=== PATIENT | male | born 1965 | race Caucasian/White ===

== ENCOUNTER → 2017-08-17 10:13 | Outpatient (CLI) | payer MEDICAID ==
[2017-08-17 11:07] LABS: ALBUMIN 3.6 g/dL (3.4-5.0); ANION GAP 15.6 mmol/L (8-16); BILIRUBIN - TOTAL 0.5 mg/dL (0.2-1.3); CALCIUM 8.9 mg/dL (8.5-10.1); CARBON DIOXIDE 27.7 mmol/L (21.0-32.0); CREATININE - SERUM 1.4 mg/dL (0.6-1.3); POTASSIUM - SERUM 3.3 mmol/L (3.5-5.1); T4 THYROXINE 10.6 ug/dL (4.7-13.3); THYROID STIMULATING HORMONE 1.79 uIU/mL (0.36-3.74)
[2017-08-17 12:38] LABS: ERYTHROCYTE SEDIMENTATION RATE 54 mm/hr (0-20)
[2017-08-17 12:39] LABS: BASOPHILS 0.5 % (0-2); HEMATOCRIT 41.4 % (42.0-54.0); HEMOGLOBIN 14.1 g/dL (13.5-17.5); IMMATURE GRANULOCYTES 0.4 % (0-5); LYMPHOCYTES 18.4 % (15-50); MCH 31.7 pg (26.0-34.0); MCHC 34.1 g/dL (31.0-37.0); MEAN PLATELET VOLUME 11.1 fL (7.4-10.4); MONOCYTES 5.1 % (2-11); NEUTROPHILS 72.6 % (40-80); PLATELET COUNT 261 10x3/uL (130-400); RBC 4.45 10x6/uL (4.20-6.10); RDW 13.7 % (11.5-14.5); WBC 10.4 10x3/uL (4.8-10.8)
[2017-08-18 07:28] LABS: RAPID PLASMA REAGIN Non Reactive (Non Reactive)
[2017-08-18 08:20] LABS: FOLATE (FOLIC ACID) - SERUM 9.3 ng/mL (>3.0)
--- NOTE | 2017-08-22 06:41 | EEG ---
PATIENT:AAKASH SCHERER DATE OF SERVICE: 08/17/17 MEDICAL RECORD: [id number] DATE OF : 61 LOCATION: [facility] ADMISSION DATE: 08/17/17 REFERRING PHYSICIAN: INTERPRETING PHYSICIAN: NEHEMIAS TORRE MD DATE OF SERVICE: 08/17/2017 REFERRING PHYSICIAN: Referred by Nehemias Torre MD as an outpatient. ELECTROENCEPHALOGRAM NUMBER: [id number]. DATE OF EXAMINATION: 08/17/2017 at 11:40 a.m. TECHNICAL DATA: This electroencephalographic recording consists of approximately 20 minutes of data collection utilizing the international 10/20 system of electrode placement and both referential and non-referential montages. Sixteen channels of electrocerebral recording are accompanied by a 17th channel dedicated to the electrocardiographic rhythm and 2 channels of electromyographic recording. Recording is performed in the awake and drowsy states utilizing activation by photic stimulation. ELECTROENCEPHALOGRAPHIC DATA: The awake state comprises approximately 90% of the recorded electrocerebral activity. Electromyographic artifact is prominent and rapid eye movements are seen. The posterior dominant background consists of a well-developed, symmetric, rhythmic, waxing and waning alpha activity of 9-10 Hz, which is suppressed by eye opening. The drowsy state comprises the remaining portion of the recorded electrocerebral activity. Electromyographic artifact is diminished and rapid eye movements are not seen. The posterior dominant background is relatively suppressed. Also seen is an intermittent irregular, generalized, and symmetric 3-4 Hz delta slowing, which occurs for periods of 1-2 seconds approximately once every 1-2 pages. No abnormal or focal slowing is identified. No epileptiform discharges are seen. Photic stimulation induces no abnormal change in the recorded electrocerebral activity. Note is made that the patient has periods of shaking of the left-sided limbs and body that are accompanied by normal waking electroencephalographic activity. INTERPRETATION: Normal (awake and drowsy). This is a normal electroencephalographic recording. Note is made that the patient has his typical shaking of the left side of the body during the electroencephalographic recording. The recorded electrocerebral activity remains normal in the waking state. TRANSINT:[id number] Voice Confirmation ID: [id number] DOCUMENT ID: [id number] ELECTROENCEPHALOGRAM REPORT [id number] AAKASH SCHERER NEHEMIAS TORRE MD at 0641 CC: [id number] DICTATION DATE: 08/20/17 0649 GUMMING MACHINE OPERATOR: 08/20/17 1228 DEP CLI 08/17/[address] [facility] [address] [id number]
== END | disposition home or self-care (01) ==
LOC: D.LAB 10:13 → D.CN 11:00
PROVIDERS: Psychiatry & Neurology Neurology
DX: G25.0 Essential tremor (principal); R41.2 Retrograde amnesia

== ENCOUNTER → 2017-11-26 09:22 | Outpatient (CLI) | payer MEDICAID ==
--- NOTE | ~2017-11-26 | EC ---
PATIENT:AAKASH SCHERER DATE OF SERVICE: 11/26/17 SEX: M MEDICAL RECORD: [id number] DATE OF : 61 [facility] AGE OF PATIENT: 52 ADMISSION DATE: 11/26/17 REFERRING PHYSICIAN: INTERPRETING PHYSICIAN: GAURAV MADRIGAL MD ECHOCARDIOGRAM REPORT ECHO CHARGES 4 ECHO COMPLETE CLINICAL DIAGNOSIS: ASTHMA/ EDEMA LOWER EXT. ECHOCARDIOGRAPHIC MEASUREMENTS (adult normal given) AC root (d.<3.7cm) 4.4 cm LV Septum d (<1.2 cm> 1.4 cm Valve Excursion 1.6 cm LV Septum (systole) 1.6 cm Left Atria (s.<4.0cm> 4.4 cm LVPW d(<1.2cm) 1.6 cm RV (d.<2.3cm) 4.2 cm LVPW (sytole) 2.3 cm LV diastole(<5.6CM) 5.7 cm MV E-F(>70mm/sec) cm LV systole 3.0 cm LVOT Diameter 1.5 cm MV exc.(>10mm) 1.4 cm Est.ejection fraction (50-75%) % Pericardial Effusion N DOPPLER: LVIT cm/sec A 67.0 cm/sec E 45.0 cm/sec LA cm/sec RVSP 27 mmHg LVOT 112 cm/sec AOP1/2T m/s Asc. Ao 185 cm/sec RVOT 97 cm/sec RA cm/sec PA 157 cm/sec AV Gradient Peak 13.74mmHg AV Mean 7.29 mmHg AV Area 1.3 cm MV Gradient Peak 3.75 mmHg MV Mean 1.70 mmHg MV Area cm COMMENTS: Earth Burner: Rickey DWYER Log Check Scaler: Diony Madrigal TAPE# PACS DATE OF SERVICE: 11/26/2017 PROCEDURE: Echocardiogram. FINDINGS: 1. Left ventricle chamber size is upper limits of normal, left ventricular systolic function is normal. Overall ejection fraction estimated at 60%. 2. The left atrium is mildly dilated at 4.4 cm. Right atrium and right ventricular chamber sizes are as well mildly dilated. 3. Valvular structures have normal structure and motion. ECHOCARDIOGRAM REPORT [id number] AAKASH SCHERER 4. Doppler interrogation only reveals mild tricuspid regurgitation. No other valvular insufficiency or stenosis. Pulmonary systolic pressure is normal estimated at 27 mmHg. 5. No evidence of pericardial effusion or left ventricular thrombus. TRANSINT:[id number] Voice Confirmation ID: [id number] DOCUMENT ID: [id number] GAURAV MADRIGAL MD at 1018 CC: [id number] DICTATION DATE: 11/26/17 1210 SALVAGE REPAIRER: 11/26/17 1217 DEP CLI 11/26/17 [place] [id number] [place] [id number]
[2017-12-01 18:10] LABS: IMMUNOGLOBULIN E 749 IU/mL (0-100)
== END | disposition home or self-care (01) ==
LOC: D.ECHO 11-13 10:05 → D.RT 11-13 11:00 → D.ECHO 11-13 11:45
PROVIDERS: Internal Medicine Pulmonary Disease
DX: J45.909 Unspecified asthma, uncomplicated (principal); R60.0 Localized edema

== ENCOUNTER 2018-02-17 07:28 | Outpatient (CLI) | payer MEDICAID ==
[~2018-02-17] VITALS: Ht 180.3 cm; Wt 170.5 kg
--- NOTE | ~2018-02-17 | OP ---
PATIENT NAME: AAKASH SCHERER MEDICAL RECORD: [id number] :61 LOCATION:[facility] ADMISSION DATE: SURGEON: GAURAV NINO MD DATE OF OPERATION: 02/17/2018 PROCEDURE: Attempted cardiac catheterization, aborted secondary to inability to gain radial access. The patient is refusing femoral access. PROCEDURE IN DETAIL: After informed consent was obtained and after detailed explanation of risks and benefits as well as alternative therapies, the patient elected to proceed with angiogram as long as it was radial. We were able to cannulate the radial artery; however, it was too small to wire. We were able to cannulate this twice with the needle; however, we could not wire this to put the sheath in. The patient refused femoral access, hence procedure was terminated. TRANSINT:[id number] Voice Confirmation ID: [id number] DOCUMENT ID: [id number] GAURAV NINO MD at 0956 CC: [id number] DICTATION DATE: 02/17/18 0939 WAREHOUSE DELIVERY MANAGER: 02/17/18 1327 DEP CLI 02/17/18 [facility] [address] [place] [address]
--- NOTE | ~2018-02-17 | HEMODYNAMI ---
PATIENT:AAKASH PAYTON MEDICAL RECORD: [id number] : 61 LOCATION:[facility] ADMISSION DATE: 02/17/18 Generatedon:02/17/20189:40 Patient name: AAKASH PAYTON Patient #: [id number] SSN: : 1965 Date of study: 02/17/2018 Page: Of Hemodynamic Procedure Report Patient Data Patient Demographics Procedure consent was obtained First Name: AAKASH Gender: Male Last Name: NIESHA : 1965 Middle Initial: CODY Age: 52 year(s) Patient #: [id number] Race: Unknown Additional ID: [id number] Contact details [address]: [address] [place] [address] State: [place] City: [place] Zip code: [address] Admission Admission Data Admission Date: 02/17/2018 Admission Time: 7:28 Height (in.): 72 BSA: 2.79 (m2) Height (cm.): 182.88 BMI: 51.27 (kg/m2) Weight (lbs.): 378 Weight (kg.): 171.46 Lab Results Lab Result Date: 02/17/2018 Lab Result Time: 0:00 Biochemistry Name Units Result Min Max BUN mg/dl 17 --(---*)-- 7 18 Creatinine mg/dl 1.2 --(---*)-- 0.6 1.3 CBC Name Units Result Min Max Hemoglobin g/dl 14 --(*---)-- 13.5 17.5 Procedure Procedure Types Cath Procedure Diagnostic Procedure Sedation Charges Moderate Sedation up to 15 minutes Procedure Description Procedure Date Procedure Date: 02/17/2018 Procedure Start Time: 9:14 Procedure End Time: 9:39 Procedure Staff Name Function Maximiliano Madrigal MD Performing Physician Ashley Ziegler RT Scrub Ondina Nascimento RT Monitor Ken Gamez RN Nurse Procedure Data Cath Procedure Fluoroscopy Diagnostic fluoroscopy Total fluoroscopy Time: 0 time: 0 min min Contrast Material Contrast Material Type Amount (ml) Isovue 300 0 Estimated blood loss: 0 ml Procedure Complications No complications Procedure Medications Medication Administration Route Dosage Oxygen NC 2 l/min Lidocaine 2% added to field 20 Heparin Flush Bag added to field 2 bags (1000units/500ml NS) 0.9% NaCl I.V. 100 ml/hr Versed I.V. 1 mg Fentanyl I.V. 50 mcg Versed I.V. 1 mg Fentanyl I.V. 50 mcg Versed I.V. 1 mg Fentanyl I.V. 50 mcg Versed I.V. 1 mg Fentanyl I.V. 50 mcg Hemodynamics Rest BSA: 2.79 (m2) HGB: 14 (g/dl) O2 Consumption: Estimated: 355.07 (ml/min) O2 Cons umption indexed: Estimated:127.27 (ml/min/m) Heart Rate: 93 (bpm) Snapshots Pre Cath Intra NCS Post Cath Vital Signs Time Heart Resp SPO2 etCO2 NIBP Rhythm Pain Sedation Rate (ipm) (%) (mmHg) (mmHg) Status Level (bpm) 9:04:42 91 23 96 0 118/54(76) NSR 0 (11) 10(A) , No pain 8:57:28 88 21 95 0 113/53(86) NSR 0 (11) 10(A) , No pain 9:10:14 78 14 94 33.5 104/64(0) NSR 0 (11) 10(A) , No pain 9:15:01 84 15 99 38 Time NSR 0 (11) 10(A) Exceeded , No pain 9:20:00 77 12 95 23.1 110/58(0) NSR 0 (11) 9(A) , No pain 9:21:24 73 14 94 25.3 Time NSR 0 (11) 9(A) Exceeded , No pain 9:26:35 92 15 98 10.4 116/62(0) NSR 0 (11) 9(A) , No pain 9:31:34 82 14 97 41 Measuring NSR 0 (11) 9(A) , No pain 9:32:34 81 12 100 17.1 105/58(0) NSR 0 (11) 9(A) , No pain 9:37:33 87 13 100 40.2 Measuring NSR 0 (11) 9(A) , No pain 9:38:57 88 13 100 35.8 108/60(0) NSR 0 (11) 9(A) , No pain Medications Time Medication Route Dose Verified Delivered Reason Notes Effec tiveness by by 8:53:06 Oxygen NC 2 Maximiliano Buffie used for l/min Rohan Gamez RN procedure 8:53:13 Lidocaine 2% added 20ml Maximiliano Maximiliano for local to vial Rohan Madrigal MD anesthetic field 8:53:18 Heparin Flush added 2 Maximiliano Maximiliano used for Bag to bags Rohan Madrigal MD procedure (1000units/500ml field NS) 8:53:27 0.9% NaCl I.V. 100 Maximiliano Buffie Per ml/hr Rohan Gamez RN physician 9:12:40 Versed I.V. 1 mg Maximiliano Buffie for Rohan Gamez RN sedation 9:12:45 Fentanyl I.V. 50 Maximiliano Buffie for mcg Rohan Gamez RN sedation 9:17:31 Versed I.V. 1 mg Maximiliano Buffie for Rohan Gamez RN sedation 9:17:34 Fentanyl I.V. 50 Maximiliano Buffie for mcg Rohan Gamez RN sedation 9:22:27 Versed I.V. 1 mg Maximiliano Buffie for Rohan Gamez RN sedation 9:22:30 Fentanyl I.V. 50 Maximiliano Buffie for mcg Rohan Gamez RN sedation 9:28:52 Versed I.V. 1 mg Maximiliano Buffie for Rohan Gamez RN sedation 9:28:56 Fentanyl I.V. 50 Maximiliano Buffie for mcg Rohan Gamez RN sedation Procedure Log Time Note 8:30:58 Informed consent obtained and on chart 8:31:08 Mr. Payton states that he will only have procedure done via the radial artery, pt refuses to remove underwear and states that if radial approach cannot be used then to abort procedure. Dr. Madrigal is made aware of request. 8:31:10 Diagnostic Cath Status : Elective 8:32:00 Ashley Ziegler RT(R) sent for patient. Start room use. 8:32:10 Time tracking: Regular hours (M-F 7:00 - 5:00) 8:32:18 Plan of Care:Hemodynamics will remain stable., Cardiac rhythm will remain stable., Comfort level will be maintained., Respiratory function will remain adequate., Patient/ family verbilizes understanding of procedure., Procedure tolerated without complication., Recovers from procedure without complications.. 8:44:06 Patient received from Pre/Post Procedure Room to CCL 2 Alert and oriented. Tansferred to table in Supine position. 8:44:07 Warm blankets applied, and chas hugger turned on for patient comfort. 8:44:08 Correct patient and procedure confirmed by team. 8:44:09 ECG and BP/O2 sat monitors applied to patient. 8:50:49 Vital chart was started 8:50:55 Full Disclosure recording started 8:51:00 H&P Date Dictated: 02/17/2018 Within 30 days and on chart., H&P Addendum completed by physician on day of procedure. (MUST COMPLETE FOR ALL OUTPATIENTS). 8:51:01 Pre-procedure instructions explained to patient. 8:51:01 Pre-op teaching completed and patient verbalized understanding. 8:51:02 Family in waiting room. 8:51:05 Patient NPO since Midnight. 8:51:07 Is the patient allergic to Iodine/contrast media? No. 8:51:09 Was the patient premedicated? No 8:51:12 Is patient on blood thinner?No 8:51:14 Patient diabetic? Yes. 8:51:15 If diabetic: On Metformin? Yes 8:51:18 If on Metformin: Last Dose? 02/15/2018 8:51:24 Previous problem with sedation/anesthesia? No ? 8:51:28 Snore? Yes 8:51:29 Sleep apnea? Yes 8:51:30 Deviated septum? No 8:51:31 Opens mouth fully? Yes 8:51:32 Sticks out tongue? Yes 8:51:39 Airway obstruction? Yes asthma 8:51:46 Dentures? No ? 8:51:51 Pre procedure: right dorsailis pedis pulse 1+ Palpable, but thready & weak; easily obliterated 8:51:53 Pre procedure: left dorsailis pedis pulse 1+ Palpable, but thready & weak; easily obliterated 8:51:54 Patient pain scale 0/10 ?. 8:52:00 IV patent on arrival in left forearm with 0.9% NaCl at KVO. 8:52:04 Lab results completed and on chart. 8:52:14 Right Radial area was prepped with chlora-prep and draped in sterile fashion 8:52:15 Alarms reviewed by R. N. 8:52:16 Sharps counted by scrub and verified by R.N. 8:53:06 Oxygen 2 l/min NC was administered by Ken Gamez RN; used for procedure; 8:53:13 Lidocaine 2% 20ml vial added to field was administered by Maximiliano Madrigal MD; for local anesthetic; 8:53:18 Heparin Flush Bag (1000units/500ml NS) 2 bags added to field was administered by Maximiliano Madrigal MD; used for procedure; 8:53:27 0.9% NaCl 100 ml/hr I.V. was administered by Ken Gamez RN; Per physician; 8:56:17 Baseline sample Acquired. 8:56:25 Rhythm: sinus tachycardia 9:01:25 Use device set Femoral Dx 9:01:26 Medline Cath Pack ([id number]) opened to sterile field. 9:01:29 DIAGNOSTIC WIRE .035 260cm J wire ([id number]) opened to sterile field. 9:01:30 ACIST Hand Control (87751) opened to sterile field. 9:01:31 ACIST Manifold (71086) opened to sterile field. 9:01:36 Tegaderm 4 x 4 (1626W) opened to sterile field. 9:01:51 SHEATH 6Fr Prelude Radial ([id number]) opened to sterile field. 9:03:33 Patient Height : 72 inches 9:03:40 Patient Weight : 378 lbs 9:05:37 Lab Result : Creatinine 1.2 mg/dl 9:05:37 Lab Result : BUN 17 mg/dl 9:05:37 Lab Result : Hemoglobin 14 g/dl 9:11:22 Physician arrived 9::23 --------ALL STOP TIME OUT------ 9:11:24 Final Timeout: patient, procedure, and site verified with staff and physician. All members of the team are in agreement. 9:11:32 Right Radial site verified by team. 9:11:47 Physical assessment completed. ASA score P 2 - A patient with mild systemic disease as per Maximiliano Madrigal MD. 9:11:53 Sedation plan: IV Moderate Sedation Medication:Versed, Fentanyl 9:12:11 Zero performed for pressure channel P1 9:12:40 Versed 1 mg I.V. was administered by Ken Gamez RN; for sedation; 9:12:45 Fentanyl 50 mcg I.V. was administered by Ken Gamez RN; for sedation; 9:13:58 Procedure started. 9:14:09 Local anesthetic to right radial artery with Lidocaine 2% by Maximiliano Madrigal MD.INITIAL ACCESS ONLY 9:17:31 Versed 1 mg I.V. was administered by Ken Gamez RN; for sedation; 9:17:34 Fentanyl 50 mcg I.V. was administered by Ken Gamez RN; for sedation; 9:22:27 Versed 1 mg I.V. was administered by Ken Gamez RN; for sedation; 9:22:30 Fentanyl 50 mcg I.V. was administered by Ken Gamez RN; for sedation; 9:28:52 Versed 1 mg I.V. was administered by Ken Gamez RN; for sedation; 9:28:56 Fentanyl 50 mcg I.V. was administered by Ken Gamez RN; for sedation; 9:37:13 Unable to access radial artery. Procedure aborted. 9:37:24 Timer 1 started at 9:18 AM, stopped at 9:37 AM, duration 00:19:01 sec. 9:37:35 Procedure ended.(Physican Out) 9:37:46 Fluoroscopy time 00.00 minutes. 9:37:53 Contrast amount:Isovue 300 0ml. 9:37:58 Sharps counted by scrub and verified by R.N. 9:38:01 Insertion/operative site no bleeding no hematoma. 9:38:08 Post procedure rhythm: unchanged. 9:38:14 Estimated blood loss: 0 ml 9:38:21 Post procedure instruction explained to patient.Patient verbalizes understanding. 9:38:46 Procedure type changed to Cath procedure, Diagnostic procedure, Sedation Charges, Moderate Sedation up to 15 minutes 9:38:49 Procedure and supply charges have been captured, reviewed, submitted and are correct. 9:39:32 Procedure Complication : No complications 9:39:34 Vital chart was stopped 9:39:35 See physician's report for complete and final results. 9:39:37 Report given to Pre/Post Procedure Room. 9:39:40 Patient transfered to Pre/Post Procedure Room with Stretcher. 9:39:43 Procedure ended. 9:39:43 Full Disclosure recording stopped 9:39:46 End room use (Document Last) Device Usage Item Name Manufacture Quantity Catalog Number Hospital Part Current M inimal Lot# / Charge Number Stock Stock Serial# Code Medline Cath Cardinal 1 [id number] [id number] [id number] 5 [facility] ([id number]) DIAGNOSTIC WIRE [facility] [place] 1 398674 894611 813674 399276 3 0 .035 260cm J wire (802000) ACIST Hand Acist 1 15724 212162 411466 439526 5 Control (13879) [employer] ACIST Manifold Acist 1 38680 891843 108510 640326 5 (15660) [employer] Tegaderm 4 x 4 3M 1 1626W [id number] 511261 817345 5 (1626W) SHEATH 6Fr Merit 1 [id number] 413279 452770 244447 5 Prelude [facility] ([id number]) Signature Audit [place] Stage Time Signature Unsigned Intra-Procedure 02/17/2018 Ondina Nascimento 9:40:06 AM RT(R) Signatures Monitor : Ondina Nascimento Signature : RT Date : Time : [address] [address]
[2018-02-17] MEDS ORDERED: LISINOPRIL5 MG PO (07:49)
[2018-02-17] MEDS ORDERED: FUROSEMIDE40 MG PO (07:50)
[2018-02-17] MEDS ORDERED: K-DUR20 MEQ PO (07:50)
[2018-02-17] MEDS ORDERED: PEPCID20 MG PO (07:50)
[2018-02-17] MEDS ORDERED: PRAVACHOL40 MG PO (07:51)
[2018-02-17] MEDS ORDERED: INDERAL10 MG PO (07:52)
[2018-02-17] MEDS ORDERED: GLUCOPHAGE1000 MG PO (07:52)
[2018-02-17] MEDS ORDERED: PROAIR HFA8.5 GM INH (07:53)
[2018-02-17] MEDS ORDERED: LOPRESSOR25 MG PO (07:53)
[2018-02-17] MEDS ORDERED: MYSOLINE 50 MG50 MG PO (07:55)
[2018-02-17 08:03] VITALS: BP 119/73; Ht 180.3 cm; Wt 170.5 kg
[2018-02-17 08:12] LABS: BASOPHILS 0.6 % (0-2); EOSINOPHILS 5.1 % (0-7); HEMATOCRIT 41.9 % (42.0-54.0); IMMATURE GRANULOCYTES 0.4 % (0-5); LYMPHOCYTES 28.1 % (15-50); MCH 31.2 pg (26.0-34.0); MCHC 33.4 g/dL (31.0-37.0); MCV 93.3 fL (80.0-100.0); MEAN PLATELET VOLUME 10.7 fL (7.4-10.4); MONOCYTES 7.1 % (2-11); NEUTROPHILS 58.7 % (40-80); PLATELET COUNT 242 10x3/uL (130-400); RBC 4.49 10x6/uL (4.20-6.10); RDW 13.7 % (11.5-14.5); WBC 7.8 10x3/uL (4.8-10.8)
[2018-02-17 08:53] LABS: ANION GAP 15.4 mmol/L (8-16); CALCIUM 9.1 mg/dL (8.5-10.1); CARBON DIOXIDE 26.8 mmol/L (21.0-32.0); CREATININE - SERUM 1.2 mg/dL (0.6-1.3); POTASSIUM - SERUM 4.2 mmol/L (3.5-5.1)
== END 2018-02-17 12:05 | disposition home or self-care (01) ==
LOC: D.CATH 07:28
PROVIDERS: Internal Medicine Interventional Cardiology
DX: I20.9 Angina pectoris, unspecified (principal); Z01.812 Encounter for preprocedural laboratory examination

== ENCOUNTER → 2018-04-16 08:31 | Outpatient (CLI) | payer MEDICAID ==
[2018-02-17 08:03] VITALS: BMI 52.4
[~2018-04-16 08:31] MED LIST: COLCRYS0.6 MG PO; FUROSEMIDE40 MG PO; GLUCOPHAGE1000 MG PO; INDERAL10 MG PO; K-DUR20 MEQ PO; LISINOPRIL5 MG PO; LOPRESSOR25 MG PO; MYSOLINE 50 MG50 MG PO; NORCO 7.5/325 T1 TA1 PO; PEPCID20 MG PO; PRAVACHOL40 MG PO; PREDNISONE10 MG PO; PROAIR HFA8.5 GM INH; ZITHROMAX250 MG PO
== END | disposition home or self-care (01) ==
LOC: D.US 08:31
DX: R60.0 Localized edema (principal)

== ENCOUNTER 2018-05-16 19:39 | Emergency (ER) | payer MEDICAID ==
[~2018-05-16] VITALS: Ht 180.3 cm; Wt 163.6 kg
[~2018-05-16 19:39] MED LIST changes: -COLCRYS0.6 MG PO; -NORCO 7.5/325 T1 TA1 PO; -PREDNISONE10 MG PO; -ZITHROMAX250 MG PO
[2018-05-16 19:43] VITALS: Ht 180.3 cm; Wt 163.6 kg
[2018-05-16 20:10] LABS: BASOPHILS 0.5 % (0-2); HEMATOCRIT 40.9 % (42.0-54.0); HEMOGLOBIN 13.6 g/dL (13.5-17.5); IMMATURE GRANULOCYTES 0.3 % (0-5); LYMPHOCYTES 23.3 % (15-50); MCH 31.3 pg (26.0-34.0); MCHC 33.3 g/dL (31.0-37.0); MEAN PLATELET VOLUME 10.7 fL (7.4-10.4); NEUTROPHILS 67.9 % (40-80); PLATELET COUNT 271 10x3/uL (130-400); RBC 4.35 10x6/uL (4.20-6.10); RDW 13.6 % (11.5-14.5); WBC 9.8 10x3/uL (4.8-10.8)
[2018-05-16 20:38] LABS: APPEARANCE CLEAR (CLEAR); COLOR YELLOW (YELLOW)
[2018-05-16 20:38] LABS: ALBUMIN 3.5 g/dL (3.4-5.0); ALKALINE PHOSPHATASE 96 U/L (46-116); ALT (SGPT) 27 U/L (10-68); BILIRUBIN - TOTAL 0.26 mg/dL (0.2-1.3); CALC OSMOLALITY 281 mosm/kg (275-300); CALCIUM 9.2 mg/dL (8.5-10.1); CHLORIDE - SERUM 100 mmol/L (98-107); CREATININE - SERUM 1.3 mg/dL (0.6-1.3); GLUCOSE 197 mg/dL (74-106); POTASSIUM - SERUM 3.5 mmol/L (3.5-5.1); PROTEIN - SERUM 7.5 g/dL (6.4-8.2); SODIUM 138 mmol/L (136-145); UREA NITROGEN 14 mg/dL (7-18); eGFR NON AFRICAN AMERICAN 61 mL/min (90-120)
[2018-05-16 20:39] LABS: BILIRUBIN NEGATIVE (NEGATIVE); GLUCOSE NEGATIVE (NEGATIVE); KETONE NEGATIVE (NEGATIVE); NITRITE NEGATIVE (NEGATIVE); PROTEIN NEGATIVE (NEGATIVE); UROBILINOGEN NORMAL (NORMAL)
[2018-05-16 20:41] LABS: CREATINE KINASE 37 UL (21-232)
[2018-05-16 20:41] LABS: WHITE CELLS - URINE 0-5 /hpf (0-5)
[2018-05-16 20:42] LABS: BACTERIA FEW /hpf (NONE SEEN)
[2018-05-16 20:45] LABS: TROPONIN-I < 0.017 ng/mL (0.000-0.060)
[2018-05-16 20:47] LABS: INR 0.89 (0.85-1.17); PROTIME 11.7 SECONDS (11.6-15.0)
[2018-05-16 20:50] LABS: THYROID STIMULATING HORMONE 2.59 uIU/mL (0.36-3.74); URIC ACID 9.6 mg/dL (2.6-7.2)
[2018-05-16] MEDS ORDERED: ZITHROMAX250 MG PO (22:44)
[2018-05-16] MEDS ORDERED: PREDNISONE10 MG PO (22:44)
[2018-05-16] MEDS ORDERED: NORCO 7.5/325 T1 TA1 PO (22:44)
[2018-05-16] MEDS ORDERED: COLCRYS0.6 MG PO (22:45)
[2018-05-17 01:25] VITALS: BP 114/55
== END 2018-05-17 01:26 | disposition home or self-care (01) ==
LOC: D.ER 19:39
PROVIDERS: Family Medicine
DX: R06.02 Shortness of breath (principal); M10.9 Gout, unspecified; M79.605 Pain in left leg; E11.9 Type 2 diabetes mellitus without complications; I10 Essential (primary) hypertension; F17.200 Nicotine dependence, unspecified, uncomplicated

== ENCOUNTER 2018-06-24 18:14 | Inpatient (IN) | payer MEDICAID ==
[~2018-06-24] VITALS: Ht 180.3 cm; Wt 164.1 kg
--- NOTE | ~2018-06-24 | DS ---
PATIENT:AAKASH SCHERER :61 MEDICAL RECORD: [id number] DISCHARGE SUMMARY ADMISSION DATE: 06/24/18 DISCHARGE DATE: 06/27/18 DATE OF ADMISSION: 06/24/2018. DATE OF DISCHARGE: 06/27/2018. CONDITION ON DISCHARGE: Improved. ADMITTING DIAGNOSES: Hypomagnesium as well as hypokalemia. DISCHARGE DIAGNOSES: Hypokalemia, hypomagnesium, hypertension, unspecified atrial fibrillation, type 2 diabetes, gastroesophageal reflux. HOSPITAL COURSE: This patient is a 53-year-old gentleman who was admitted to the hospital with significant hypokalemia as well as electrolyte imbalance, given fluids in the Emergency Room, subsequently admitted. On physical examination, the patient was afebrile. His vital signs were stable. He had a sodium of 137, potassium 2.1, his chloride was 94, BUN was 19, his creatinine was 1.2, magnesium level was 1.6, glucose 181. Liver functions were normal. ProBNP was normal. White count 11.5, hemoglobin 13.8, hematocrit 45.5, platelet count was 271. The patient had a chest x-ray. His chest x-ray revealed bibasilar atelectasis, otherwise normal. The patient was admitted, potassium replacement was initiated as well as magnesium. On the , the patient was feeling better and resting comfortably. He was afebrile. His vital signs were stable. Physical exam was unremarkable. On the , the patient's white count was 7.3, hemoglobin 12, hematocrit 36.4, his platelets were 219. His potassium was 3.8. His magnesium had been corrected. The patient was therefore discharged to self care. MEDICATIONS: Include lisinopril 5 mg 1 p.o. every day, KCl 20 mEq p.o. t.i.d., Inderal 10 mg p.o. b.i.d., metformin 1000 mg p.o. b.i.d. with meals, Lopressor 25 mg 1 p.o. every day, ProAir 90 mcg 2 puffs q.4 hours p.r.n. shortness of breath, Primidone 50 mg p.o. t.i.d., Lasix 40 mg p.o. daily. DISCHARGE INSTRUCTIONS: The patient was to be on a 2200 calorie ADA diet, 50 ounce daily oral fluid restriction. He is to follow up with Dr. Reid on the following . TRANSINT:[id number] Voice Confirmation ID: [id number] DOCUMENT ID: [id number] FLORENTINO LEVIN MD CC: [id number] DICTATION DATE: 07/25/18 1201 VICE PRESIDENT INVESTOR RELATIONS: 07/25/18 1224 DIS IN 06/27/18 [facility] [address] [place] [id number]
[~2018-06-24 18:14] MED LIST changes: +COLCRYS0.6 MG PO; +NORCO 7.5/325 T1 TA1 PO; +PREDNISONE10 MG PO; +ZITHROMAX250 MG PO
[2018-06-24 19:25] LABS: BASOPHILS 0.5 % (0-2); HEMATOCRIT 40.5 % (42.0-54.0); HEMOGLOBIN 13.8 g/dL (13.5-17.5); IMMATURE GRANULOCYTES 0.4 % (0-5); LYMPHOCYTES 22.8 % (15-50); MCH 31.1 pg (26.0-34.0); MCHC 34.1 g/dL (31.0-37.0); MCV 91.2 fL (80.0-100.0); MEAN PLATELET VOLUME 10.7 fL (7.4-10.4); MONOCYTES 5.8 % (2-11); NEUTROPHILS 67.5 % (40-80); PLATELET COUNT 271 10x3/uL (130-400); RBC 4.44 10x6/uL (4.20-6.10); RDW 13.2 % (11.5-14.5); WBC 11.5 10x3/uL (4.8-10.8)
[2018-06-24 19:42] LABS: ALBUMIN 3.6 g/dL (3.4-5.0); ANION GAP 8.9 mmol/L (8-16); BILIRUBIN - TOTAL 0.35 mg/dL (0.2-1.3); CALCIUM 8.8 mg/dL (8.5-10.1); CARBON DIOXIDE 36.2 mmol/L (21.0-32.0); CREATININE - SERUM 1.2 mg/dL (0.6-1.3); PROTEIN - SERUM 7.9 g/dL (6.4-8.2)
[2018-06-24 19:43] LABS: POTASSIUM - SERUM 2.1 mmol/L (3.5-5.1)
[2018-06-24 20:58] LABS: MAGNESIUM - SERUM 1.6 mg/dL (1.8-2.4)
[2018-06-25 00:25] VITALS: BP 123/63; Ht 180.3 cm; Wt 164.1 kg
[2018-06-25 04:00] VITALS: BP 92/62
[2018-06-25 06:23] LABS: BASOPHILS 0.4 % (0-2); EOSINOPHILS 3.2 % (0-7); HEMATOCRIT 37.5 % (42.0-54.0); HEMOGLOBIN 12.6 g/dL (13.5-17.5); IMMATURE GRANULOCYTES 0.4 % (0-5); LYMPHOCYTES 23.4 % (15-50); MCH 30.7 pg (26.0-34.0); MCHC 33.6 g/dL (31.0-37.0); MCV 91.2 fL (80.0-100.0); MEAN PLATELET VOLUME 10.9 fL (7.4-10.4); MONOCYTES 6.7 % (2-11); NEUTROPHILS 65.9 % (40-80); PLATELET COUNT 239 10x3/uL (130-400); RBC 4.11 10x6/uL (4.20-6.10); RDW 13.6 % (11.5-14.5)
[2018-06-25 06:35] LABS: CALC OSMOLALITY 285 mosm/kg (275-300); CALCIUM 8.7 mg/dL (8.5-10.1); CARBON DIOXIDE 35.9 mmol/L (21.0-32.0); CHLORIDE - SERUM 95 mmol/L (98-107); GLUCOSE 187 mg/dL (74-106); MAGNESIUM - SERUM 1.7 mg/dL (1.8-2.4); PHOSPHOROUS 4.7 mg/dL (2.5-4.9); SODIUM 140 mmol/L (136-145); UREA NITROGEN 17 mg/dL (7-18); eGFR NON AFRICAN AMERICAN 82 mL/min (90-120)
[2018-06-25 06:36] LABS: WBC 8.3 10x3/uL (4.8-10.8)
[2018-06-25 08:28] VITALS: BP 112/82
[2018-06-25 13:18] VITALS: BP 151/73
[2018-06-25 16:08] VITALS: BP 126/88
[2018-06-25 20:00] VITALS: BP 134/56
[2018-06-26] VITALS: BP 140/58
[2018-06-26 04:00] VITALS: BP 125/62
[2018-06-26 06:26] LABS: BASOPHILS 0.4 % (0-2); EOSINOPHILS 3.8 % (0-7); HEMATOCRIT 36.4 % (42.0-54.0); HEMOGLOBIN 12.1 g/dL (13.5-17.5); IMMATURE GRANULOCYTES 0.4 % (0-5); LYMPHOCYTES 20.7 % (15-50); MCH 30.4 pg (26.0-34.0); MCHC 33.2 g/dL (31.0-37.0); MCV 91.5 fL (80.0-100.0); MEAN PLATELET VOLUME 11.1 fL (7.4-10.4); MONOCYTES 5.8 % (2-11); NEUTROPHILS 68.9 % (40-80); PLATELET COUNT 219 10x3/uL (130-400); RBC 3.98 10x6/uL (4.20-6.10); RDW 13.5 % (11.5-14.5); WBC 7.6 10x3/uL (4.8-10.8)
[2018-06-26 07:05] LABS: ALBUMIN 2.9 g/dL (3.4-5.0); ALKALINE PHOSPHATASE 77 U/L (46-116); ALT (SGPT) 28 U/L (10-68); BILIRUBIN - TOTAL 0.23 mg/dL (0.2-1.3); CALCIUM 8.1 mg/dL (8.5-10.1); CARBON DIOXIDE 36.8 mmol/L (21.0-32.0); CHLORIDE - SERUM 98 mmol/L (98-107); GLUCOSE 193 mg/dL (74-106); SODIUM 140 mmol/L (136-145); eGFR NON AFRICAN AMERICAN 82 mL/min (90-120)
[2018-06-26 07:17] LABS: CALC OSMOLALITY 282 mosm/kg (275-300); UREA NITROGEN 10 mg/dL (7-18)
[2018-06-26 07:18] LABS: POTASSIUM - SERUM 2.8 mmol/L (3.5-5.1)
[2018-06-26 07:59] VITALS: BP 119/49
[2018-06-26 20:56] VITALS: BP 97/55
[2018-06-27 04:55] VITALS: BP 125/62
[2018-06-27 05:02] LABS: BASOPHILS 0.4 % (0-2); EOSINOPHILS 4.5 % (0-7); HEMATOCRIT 36.4 % (42.0-54.0); IMMATURE GRANULOCYTES 0.3 % (0-5); LYMPHOCYTES 21.2 % (15-50); MCH 30.6 pg (26.0-34.0); MCV 92.9 fL (80.0-100.0); MEAN PLATELET VOLUME 10.8 fL (7.4-10.4); MONOCYTES 5.6 % (2-11); PLATELET COUNT 219 10x3/uL (130-400); RBC 3.92 10x6/uL (4.20-6.10); RDW 13.8 % (11.5-14.5); WBC 7.3 10x3/uL (4.8-10.8)
[2018-06-27 05:24] LABS: CALC OSMOLALITY 281 mosm/kg (275-300); CALCIUM 8.4 mg/dL (8.5-10.1); CARBON DIOXIDE 32.9 mmol/L (21.0-32.0); CHLORIDE - SERUM 102 mmol/L (98-107); CREATININE - SERUM 0.9 mg/dL (0.6-1.3); GLUCOSE 189 mg/dL (74-106); SODIUM 139 mmol/L (136-145); UREA NITROGEN 9 mg/dL (7-18); eGFR NON AFRICAN AMERICAN > 90 mL/min (90-120)
[2018-06-27 05:28] LABS: POTASSIUM - SERUM 3.5 mmol/L (3.5-5.1)
[2018-06-27] MEDS ORDERED: LASIX40 MG PO (08:21)
[2018-06-27 08:49] VITALS: BP 121/64
== END 2018-06-27 15:32 | disposition home or self-care (01) | DRG 641 ==
LOC: D.ER 18:14 → D.MS 21:59 → D.EDHOLD 21:59 → D.MS 22:34
PROVIDERS: Family Medicine
DX: E87.6 Hypokalemia (principal); E83.42 Hypomagnesemia; I10 Essential (primary) hypertension; I48.91 Unspecified atrial fibrillation; E11.40 Type 2 diabetes mellitus with diabetic neuropathy, unspecified; K21.9 Gastro-esophageal reflux disease without esophagitis

== ENCOUNTER 2018-07-07 14:57 | Emergency (ER) | payer MEDICAID ==
[~2018-07-07] VITALS: Ht 180.3 cm; Wt 160.5 kg
[~2018-07-07 14:57] MED LIST changes: +LASIX40 MG PO
[2018-07-07 15:06] VITALS: Ht 180.3 cm; Wt 160.5 kg
[2018-07-07 15:35] LABS: BASOPHILS 0.5 % (0-2); HEMATOCRIT 40.1 % (42.0-54.0); HEMOGLOBIN 13.6 g/dL (13.5-17.5); IMMATURE GRANULOCYTES 0.3 % (0-5); LYMPHOCYTES 22.5 % (15-50); MCH 31.3 pg (26.0-34.0); MCHC 33.9 g/dL (31.0-37.0); MCV 92.2 fL (80.0-100.0); MEAN PLATELET VOLUME 10.5 fL (7.4-10.4); MONOCYTES 5.1 % (2-11); NEUTROPHILS 69.6 % (40-80); PLATELET COUNT 305 10x3/uL (130-400); RBC 4.35 10x6/uL (4.20-6.10); RDW 13.8 % (11.5-14.5); WBC 12.1 10x3/uL (4.8-10.8)
[2018-07-07 16:07] LABS: ALBUMIN 3.6 g/dL (3.4-5.0); ALKALINE PHOSPHATASE 81 U/L (46-116); ALT (SGPT) 35 U/L (10-68); BILIRUBIN - TOTAL 0.47 mg/dL (0.2-1.3); CALC OSMOLALITY 267 mosm/kg (275-300); CALCIUM 8.6 mg/dL (8.5-10.1); CARBON DIOXIDE 26.4 mmol/L (21.0-32.0); CHLORIDE - SERUM 97 mmol/L (98-107); POTASSIUM - SERUM 3.8 mmol/L (3.5-5.1); PROTEIN - SERUM 7.4 g/dL (6.4-8.2); SODIUM 132 mmol/L (136-145); UREA NITROGEN 18 mg/dL (7-18); eGFR NON AFRICAN AMERICAN 37 mL/min (90-120)
[2018-07-07 16:17] LABS: GLUCOSE 118 mg/dL (74-106)
[2018-07-07 16:33] LABS: CKMB 0.5 U/L (0.0-3.6); CREATINE KINASE 53 UL (21-232); PRO BNP 48 pg/mL (0-125); TROPONIN-I < 0.017 ng/mL (0.000-0.060)
[2018-07-07 17:08] LABS: INR 0.99 (0.85-1.17); PROTIME 12.7 SECONDS (11.6-15.0)
[2018-07-07 17:09] LABS: D-DIMER-QUANTITATIVE 0.83 ug/mLFEU (0.20-0.54)
[2018-07-07 17:45] LABS: APPEARANCE CLEAR (CLEAR); COLOR YELLOW (YELLOW)
[2018-07-07 17:46] LABS: BILIRUBIN NEGATIVE (NEGATIVE); GLUCOSE NEGATIVE (NEGATIVE); KETONE NEGATIVE (NEGATIVE); NITRITE NEGATIVE (NEGATIVE); PROTEIN TRACE mg/dL (NEGATIVE); SPECIFIC GRAVITY 1.015 (1.005-1.020); UROBILINOGEN NORMAL (NORMAL)
[2018-07-07 17:47] LABS: RED CELLS - URINE OCC /hpf (0-5); WHITE CELLS - URINE 0-5 /hpf (0-5)
[2018-07-07 17:48] LABS: BACTERIA FEW /hpf (NONE SEEN)
[2018-07-07 18:43] LABS: AMYLASE - SERUM 72 U/L (25-115); C-REACTIVE PROTEIN 3.8 mg/dL (0.0-0.9); CREATINE KINASE 60 UL (21-232); LIPASE 318 U/L (73-393); THYROID STIMULATING HORMONE 2.64 uIU/mL (0.36-3.74); TROPONIN-I < 0.017 ng/mL (0.000-0.060)
[2018-07-07] MEDS ORDERED: MEDROL DOSE PACK4 MG PO (21:49)
[2018-07-07 22:31] VITALS: BP 103/49
== END 2018-07-07 22:31 | disposition home or self-care (01) ==
LOC: D.ER 14:57
PROVIDERS: Family Medicine
DX: J44.1 Chronic obstructive pulmonary disease with (acute) exacerbation (principal); E87.6 Hypokalemia; E11.9 Type 2 diabetes mellitus without complications; I10 Essential (primary) hypertension

== ENCOUNTER 2018-07-28 11:04 | Emergency (ER) | payer MEDICAID ==
[~2018-07-28] VITALS: Ht 180.3 cm; Wt 159.5 kg
[~2018-07-28 11:04] MED LIST changes: +MEDROL DOSE PACK4 MG PO
[2018-07-28 11:09] VITALS: Ht 180.3 cm; Wt 159.5 kg
[2018-07-28 11:57] LABS: BASOPHILS 0.3 % (0-2); EOSINOPHILS 1.7 % (0-7); HEMATOCRIT 41.6 % (42.0-54.0); HEMOGLOBIN 14.4 g/dL (13.5-17.5); IMMATURE GRANULOCYTES 0.3 % (0-5); LYMPHOCYTES 18.4 % (15-50); MCH 31.2 pg (26.0-34.0); MCHC 34.6 g/dL (31.0-37.0); MCV 90.2 fL (80.0-100.0); MEAN PLATELET VOLUME 11.1 fL (7.4-10.4); NEUTROPHILS 71.3 % (40-80); PLATELET COUNT 302 10x3/uL (130-400); RBC 4.61 10x6/uL (4.20-6.10); RDW 13.6 % (11.5-14.5); WBC 10.1 10x3/uL (4.8-10.8)
[2018-07-28 12:03] LABS: INR 1.01 (0.85-1.17); PROTIME 12.9 SECONDS (11.6-15.0)
[2018-07-28 12:11] LABS: ALBUMIN 3.8 g/dL (3.4-5.0); ALKALINE PHOSPHATASE 75 U/L (46-116); ALT (SGPT) 36 U/L (10-68); BILIRUBIN - TOTAL 0.37 mg/dL (0.2-1.3); CALC OSMOLALITY 272 mosm/kg (275-300); CALCIUM 9.6 mg/dL (8.5-10.1); CARBON DIOXIDE 26.7 mmol/L (21.0-32.0); CHLORIDE - SERUM 95 mmol/L (98-107); CREATININE - SERUM 1.9 mg/dL (0.6-1.3); GLUCOSE 121 mg/dL (74-106); PROTEIN - SERUM 7.8 g/dL (6.4-8.2); SODIUM 136 mmol/L (136-145); UREA NITROGEN 13 mg/dL (7-18); eGFR NON AFRICAN AMERICAN 39 mL/min (90-120)
[2018-07-28 12:23] LABS: CKMB 0.4 U/L (0.0-3.6); CREATINE KINASE 58 UL (21-232); PRO BNP 108 pg/mL (0-125); THYROID STIMULATING HORMONE 1.84 uIU/mL (0.36-3.74)
[2018-07-28 12:24] LABS: TROPONIN-I < 0.017 ng/mL (0.000-0.060)
[2018-07-28 12:25] LABS: POTASSIUM - SERUM 3.4 mmol/L (3.5-5.1)
[2018-07-28 13:01] LABS: APPEARANCE HAZY (CLEAR); BILIRUBIN NEGATIVE (NEGATIVE); COLOR YELLOW (YELLOW); GLUCOSE NEGATIVE (NEGATIVE); KETONE NEGATIVE (NEGATIVE); NITRITE NEGATIVE (NEGATIVE); PROTEIN 1+ mg/dL (NEGATIVE); UROBILINOGEN NORMAL (NORMAL)
[2018-07-28 13:07] LABS: BACTERIA FEW /hpf (NONE SEEN); WHITE CELLS - URINE 0-5 /hpf (0-5)
[2018-07-28 13:08] LABS: RED CELLS - URINE OCC /hpf (0-5)
[2018-07-28] MEDS ORDERED: FLAGYL500 MG PO (16:57)
[2018-07-28 17:55] VITALS: BP 111/76
== END 2018-07-28 17:56 | disposition home or self-care (01) ==
LOC: D.ER 11:04
PROVIDERS: Emergency Medicine
DX: R42 Dizziness and giddiness (principal); E11.9 Type 2 diabetes mellitus without complications; K52.9 Noninfective gastroenteritis and colitis, unspecified; I10 Essential (primary) hypertension; K21.9 Gastro-esophageal reflux disease without esophagitis; R00.0 Tachycardia, unspecified

== ENCOUNTER 2018-07-30 12:26 | Inpatient (IN) | payer MEDICAID ==
[~2018-07-30] VITALS: Ht 180.3 cm; Wt 155.3 kg
[~2018-07-30 12:26] MED LIST changes: +FLAGYL500 MG PO
[2018-07-30 13:39] LABS: BASOPHILS 0.3 % (0-2); EOSINOPHILS 2.1 % (0-7); HEMATOCRIT 39.9 % (42.0-54.0); HEMOGLOBIN 13.8 g/dL (13.5-17.5); IMMATURE GRANULOCYTES 0.3 % (0-5); LYMPHOCYTES 13.6 % (15-50); MCH 31.3 pg (26.0-34.0); MCHC 34.6 g/dL (31.0-37.0); MCV 90.5 fL (80.0-100.0); MEAN PLATELET VOLUME 10.8 fL (7.4-10.4); MONOCYTES 7.8 % (2-11); NEUTROPHILS 75.9 % (40-80); PLATELET COUNT 271 10x3/uL (130-400); RBC 4.41 10x6/uL (4.20-6.10); RDW 13.7 % (11.5-14.5); WBC 9.7 10x3/uL (4.8-10.8)
[2018-07-30 13:50] LABS: ALBUMIN 3.9 g/dL (3.4-5.0); ALKALINE PHOSPHATASE 73 U/L (46-116); ALT (SGPT) 35 U/L (10-68); BILIRUBIN - TOTAL 0.55 mg/dL (0.2-1.3); CALC OSMOLALITY 270 mosm/kg (275-300); CALCIUM 9.1 mg/dL (8.5-10.1); CARBON DIOXIDE 29.2 mmol/L (21.0-32.0); CHLORIDE - SERUM 93 mmol/L (98-107); CREATININE - SERUM 2.6 mg/dL (0.6-1.3); GLUCOSE 129 mg/dL (74-106); POTASSIUM - SERUM 3.5 mmol/L (3.5-5.1); PROTEIN - SERUM 7.8 g/dL (6.4-8.2); SODIUM 132 mmol/L (136-145); UREA NITROGEN 25 mg/dL (7-18); eGFR NON AFRICAN AMERICAN 27 mL/min (90-120)
[2018-07-30 13:59] LABS: AMYLASE - SERUM 43 U/L (25-115); C-REACTIVE PROTEIN 3.9 mg/dL (0.0-0.9); LIPASE 203 U/L (73-393); THYROID STIMULATING HORMONE 0.82 uIU/mL (0.36-3.74)
[2018-07-30 14:00] VITALS: BP 88/50
[2018-07-30 14:00] LABS: TROPONIN-I < 0.017 ng/mL (0.000-0.060)
[2018-07-30 14:09] LABS: APPEARANCE CLEAR (CLEAR); COLOR YELLOW (YELLOW)
[2018-07-30 14:10] LABS: BILIRUBIN NEGATIVE (NEGATIVE); GLUCOSE NEGATIVE (NEGATIVE); KETONE NEGATIVE (NEGATIVE); NITRITE NEGATIVE (NEGATIVE); PROTEIN 1+ mg/dL (NEGATIVE); SPECIFIC GRAVITY 1.015 (1.005-1.020); UROBILINOGEN NORMAL (NORMAL)
[2018-07-30 14:11] LABS: AMORPHOUS SEDIMENT >1+ /lpf (NONE SEEN); BACTERIA MODERATE /hpf (NONE SEEN); GRANULAR CAST OCC /lpf (NONE SEEN); HYALINE CAST 0-5 /lpf (NONE SEEN); MUCUS <1+ /lpf (NONE SEEN)
[2018-07-30 15:00] VITALS: BP 106/64
[2018-07-30 16:00] VITALS: BP 92/51
[2018-07-30 17:00] VITALS: BP 111/65
[2018-07-30] MEDS ORDERED: LASIX40 MG PO (21:47)
[2018-07-30] MEDS ORDERED: BREO ELLIPTA 11 EACH INH (21:49)
[2018-07-30 21:56] VITALS: BP 128/93; BMI 49.0
[2018-07-31] VITALS: BP 105/59
[2018-07-31 04:00] VITALS: BP 127/63
[2018-07-31 07:19] LABS: BASOPHILS 0.9 % (0-2); EOSINOPHILS 4.4 % (0-7); HEMATOCRIT 37.6 % (42.0-54.0); HEMOGLOBIN 12.5 g/dL (13.5-17.5); IMMATURE GRANULOCYTES 0.2 % (0-5); LYMPHOCYTES 29.7 % (15-50); MCH 30.5 pg (26.0-34.0); MCHC 33.2 g/dL (31.0-37.0); MCV 91.7 fL (80.0-100.0); MEAN PLATELET VOLUME 11.1 fL (7.4-10.4); MONOCYTES 6.9 % (2-11); NEUTROPHILS 57.9 % (40-80)
[2018-07-31 07:20] LABS: PLATELET COUNT 214 10x3/uL (130-400); WBC 6.4 10x3/uL (4.8-10.8)
[2018-07-31 07:36] LABS: ALBUMIN 3.4 g/dL (3.4-5.0); ANION GAP 15.2 mmol/L (8-16); BILIRUBIN - TOTAL 0.41 mg/dL (0.2-1.3); CALCIUM 8.3 mg/dL (8.5-10.1); CARBON DIOXIDE 26.2 mmol/L (21.0-32.0); MAGNESIUM - SERUM 1.7 mg/dL (1.8-2.4); POTASSIUM - SERUM 3.4 mmol/L (3.5-5.1); PROTEIN - SERUM 6.4 g/dL (6.4-8.2)
[2018-07-31 07:37] LABS: CREATININE - SERUM 1.4 mg/dL (0.6-1.3)
[2018-07-31 08:04] VITALS: BP 93/53
[2018-07-31 12:00] VITALS: BP 116/63
[2018-07-31 16:00] VITALS: BP 132/62
[2018-07-31 20:28] VITALS: BP 157/80
[2018-07-31 23:02] VITALS: Ht 180.3 cm; Wt 155.3 kg
[2018-08-01 06:13] LABS: BASOPHILS 0.9 % (0-2); EOSINOPHILS 4.6 % (0-7); HEMATOCRIT 40.6 % (42.0-54.0); HEMOGLOBIN 13.6 g/dL (13.5-17.5); IMMATURE GRANULOCYTES 0.2 % (0-5); LYMPHOCYTES 31.1 % (15-50); MCHC 33.5 g/dL (31.0-37.0); MCV 92.5 fL (80.0-100.0); MEAN PLATELET VOLUME 10.7 fL (7.4-10.4); MONOCYTES 8.3 % (2-11); NEUTROPHILS 54.9 % (40-80); PLATELET COUNT 217 10x3/uL (130-400); RBC 4.39 10x6/uL (4.20-6.10); RDW 13.6 % (11.5-14.5); WBC 5.9 10x3/uL (4.8-10.8)
[2018-08-01 06:36] LABS: ALBUMIN 3.4 g/dL (3.4-5.0); ALKALINE PHOSPHATASE 64 U/L (46-116); ALT (SGPT) 33 U/L (10-68); BILIRUBIN - TOTAL 0.28 mg/dL (0.2-1.3); CALCIUM 9.1 mg/dL (8.5-10.1); CARBON DIOXIDE 27.9 mmol/L (21.0-32.0); CHLORIDE - SERUM 101 mmol/L (98-107); GLUCOSE 123 mg/dL (74-106); POTASSIUM - SERUM 3.4 mmol/L (3.5-5.1); PROTEIN - SERUM 7.2 g/dL (6.4-8.2); SODIUM 138 mmol/L (136-145)
[2018-08-01 06:40] LABS: CALC OSMOLALITY 274 mosm/kg (275-300); UREA NITROGEN 8 mg/dL (7-18); eGFR NON AFRICAN AMERICAN 82 mL/min (90-120)
[2018-08-01 07:00] VITALS: BP 142/89
[2018-08-01 11:21] VITALS: BP 124/79
[2018-08-01 16:05] VITALS: BP 120/73
[2018-08-01 19:45] VITALS: BP 118/68
[2018-08-02 01:38] VITALS: BP 131/75
[2018-08-02 05:35] LABS: BASOPHILS 0.7 % (0-2); EOSINOPHILS 3.9 % (0-7); HEMATOCRIT 38.4 % (42.0-54.0); HEMOGLOBIN 12.7 g/dL (13.5-17.5); IMMATURE GRANULOCYTES 0.2 % (0-5); LYMPHOCYTES 29.1 % (15-50); MCH 30.4 pg (26.0-34.0); MCHC 33.1 g/dL (31.0-37.0); MCV 91.9 fL (80.0-100.0); MEAN PLATELET VOLUME 10.8 fL (7.4-10.4); MONOCYTES 7.7 % (2-11); NEUTROPHILS 58.4 % (40-80); PLATELET COUNT 211 10x3/uL (130-400); RBC 4.18 10x6/uL (4.20-6.10); RDW 13.5 % (11.5-14.5); WBC 5.9 10x3/uL (4.8-10.8)
[2018-08-02 06:06] LABS: ALBUMIN 3.3 g/dL (3.4-5.0); ALKALINE PHOSPHATASE 63 U/L (46-116); ALT (SGPT) 36 U/L (10-68); BILIRUBIN - TOTAL 0.36 mg/dL (0.2-1.3); CALC OSMOLALITY 278 mosm/kg (275-300); CARBON DIOXIDE 31.4 mmol/L (21.0-32.0); CHLORIDE - SERUM 101 mmol/L (98-107); GLUCOSE 127 mg/dL (74-106); POTASSIUM - SERUM 3.7 mmol/L (3.5-5.1); SODIUM 140 mmol/L (136-145); UREA NITROGEN 6 mg/dL (7-18); eGFR NON AFRICAN AMERICAN 82 mL/min (90-120)
[2018-08-02 06:20] VITALS: BP 124/76
[2018-08-02 08:18] VITALS: BP 127/72
[2018-08-02 11:38] VITALS: BP 136/81
[2018-08-02 15:11] VITALS: BP 122/80
[2018-08-02 20:05] VITALS: BP 146/85
[2018-08-03 01:28] VITALS: BP 155/96
[2018-08-03 04:38] VITALS: BP 124/76
[2018-08-03 07:44] VITALS: BP 123/73
[2018-08-03 10:39] LABS: MAGNESIUM - SERUM 1.5 mg/dL (1.8-2.4); POTASSIUM - SERUM 3.7 mmol/L (3.5-5.1)
[2018-08-03 12:02] VITALS: BP 132/79
[2018-08-03 16:35] VITALS: BP 112/71
[2018-08-03 19:50] VITALS: BP 119/73
[2018-08-04] VITALS: BP 139/68
[2018-08-04 04:25] VITALS: BP 116/61
[2018-08-04 07:17] VITALS: BP 121/76
[2018-08-04 11:01] VITALS: BP 145/96
[2018-08-04 15:00] VITALS: BP 122/59
[2018-08-04] MEDS ORDERED: LEVAQUIN250 MG PO (18:11)
== END 2018-08-04 19:06 | disposition home or self-care (01) | DRG 690 ==
LOC: D.ER 12:26 → D.M3 17:15
PROVIDERS: Family Medicine
DX: N39.0 Urinary tract infection, site not specified (principal); Z68.42 Body mass index [BMI] 45.0-49.9, adult; K52.9 Noninfective gastroenteritis and colitis, unspecified; I95.9 Hypotension, unspecified; J44.9 Chronic obstructive pulmonary disease, unspecified; E11.9 Type 2 diabetes mellitus without complications; G47.00 Insomnia, unspecified; E87.6 Hypokalemia; G20 Parkinson's disease; K80.50 Calculus of bile duct without cholangitis or cholecystitis without obstruction; K80.80 Other cholelithiasis without obstruction; E66.01 Morbid (severe) obesity due to excess calories; K76.0 Fatty (change of) liver, not elsewhere classified

== ENCOUNTER 2018-08-06 23:53 | Inpatient (IN) | payer MEDICAID ==
[~2018-08-06] VITALS: Ht 180.3 cm; Wt 162.0 kg
--- NOTE | ~2018-08-06 | OP ---
PATIENT NAME: AAKASH SCHERER MEDICAL RECORD: [id number] :61 LOCATION:[facility] ADMISSION DATE:08/07/18 SURGEON: MARK NIETO MD DATE OF OPERATION: 08/10/2018 PREOPERATIVE DIAGNOSES: 1. Acute cholecystitis. 2. Gallstones. 3. Morbid obesity. 4. Diabetes mellitus. 5. Chronic obstructive pulmonary disease. POSTOPERATIVE DIAGNOSES: 1. Acute cholecystitis. 2. Gallstones. 3. Morbid obesity. 4. Diabetes mellitus. 5. Chronic obstructive pulmonary disease. PROCEDURE: Laparoscopic cholecystectomy. SURGEON: Mark Nieto MD NEWSPAPER STUFFER: Tiffanie Hinson APRN REPORT OF PROCEDURE: The patient's abdomen was prepped and draped in sterile fashion. A cutdown was made just superior to the umbilicus, 0 Vicryls were placed in the fascia bilaterally and the fascia was incised with 15-blade. I then bluntly entered the peritoneal cavity and placed a 12-mm Tabitha port. Under direct visualization, a 5-mm trocar was placed in the epigastrium and 2 more 5-mm trocars were placed in the right subcostal region. The gallbladder was elevated. There were some inflammatory adhesions present and these were teased down carefully with blunt dissection. The cystic artery and cystic duct were dissected free and these were clipped proximally and distally and ligated in standard fashion. The gallbladder was taken off the liver bed using electrocautery and placed into the right upper quadrant. Any bleeding from the liver bed was then treated with electrocautery. We irrigated out the right upper quadrant and assured there was no sign of any bleeding or bile leakage. At this point, the ports and insufflation were then removed and the gallbladder was taken out through the umbilicus. The umbilical fascia was closed with interrupted 0 Vicryls times 3. The wounds were then irrigated out with normal saline and infused with 10 mL of 0.25% Marcaine with epinephrine. The skin incisions were all closed with subcutaneous 5-0 Monocryl and dressed appropriately. COMPLICATIONS: None. CONDITION: Stable. ANESTHESIA: General endotracheal and local. BLOOD LOSS: Minimal. TRANSINT:[id number] Voice Confirmation ID: [id number] DOCUMENT ID: [id number] OPERATIVE REPORT [id number] NIESHAAAKASHMARK MONCADA MD at 1409 CC: [id number] DICTATION DATE: 08/10/18 1406 FRATERNITY ADVISER: 08/10/18 1418 DIS IN 08/13/18 [place] [id number] [place] [address]
--- NOTE | ~2018-08-06 | MORECARE ---
CASE MANAGEMENT DISCHARGE SUMMARY PATIENT: AAKASH SCHERER UNIT: [id number] ADM DATE: 08/07/18 AGE: 53 : 61 SEX: M ROOM/BED: D.2215 AUTHOR: BRIDGET PANG PHYSICIAN: REFERRING PHYSICIAN: BJ ALMANZAR DO DATE OF SERVICE: 08/16/18 Discharge Plan Patient Name: AAKASH SCHERER Facility: [facility]:[place] : 1965 Planned Disposition: Home Anticipated Discharge Date: Discharge Date: 08/13/2018 Expected LOS: Initial Reviewer: [email or web address] Initial Review Date: 08/07/2018 Generated: 08/16/18 2:43 pm Comments DCP- Discharge Planning Updated by [email or web address]: Stacey Schulte on 08/13/18 2:[address] Patient Name: AAKASH SCHERER Encounter No: [id number] : 1965 Primary Insurance: [employer] [facility] Anticipated DC Date: Planned Disposition: Home External Planned Provider: : DCP follow-up note: Patient and family in agreement with discharge plan. No changes to plan. Case management will follow and assist as needed. Stacey Schulte DCP- Discharge Planning Updated by [email or web address]: Stacey Schulte on 08/10/18 12:[address] Patient Name: AAKASH SCHERER Admission Status: ER Accout number: [id number] Admission Date: 08-07-2018 : 1965 Admission Diagnosis:CALCULUS OF GALLBLADDER W ACUTE CHOLECYST W/O OBSTRUCTI Attending: BJ ALMANZAR Current LOS: 3 Anticipated DC Date: Planned Disposition: Home Primary Insurance: [employer] Discharge Planning Comments: CM met with patient to assess discharge planning needs. Patient stated that he is independent with his care at home and he lives with his mother. He denies any HH or DME. He plans to drive himself home when he is discharged. His mother is currently in inpatient rehab. He does not think that he will need anything when he is discharged and states his home is safe to return . CM will continue to follow and assist with DC planning . Pulverizer Feeder: Stacey Schulte DCPIA - Discharge Planning Initial Assessment Updated by [email or web address]: Stacey Schulte on 08/10/18 1:15 pm * Is the patient Alert and Oriented? Yes * How many steps to enter\exit or inside your home? * PCP JENELLE * Pharmacy [facility] * Preadmission Environment Home with Family * ADLs Independent * Equipment None * List name and contact numbers for known caregivers / representatives who currently or will assist patient after discharge: VIVIENNE LING (COUSIN) [phone] * Verbal permission to speak to the caregivers and representatives has been obtained from the patient. N/A * Community resources currently utilized None * Additional services required to return to the preadmission environment? No * Can the patient safely return to the preadmission environment? Yes * Has this patient been hospitalized within the prior 30 days at any hospital? No Last DP export: 08/13/18 2:10 Patient Name: AAKASH SCHERER Page [id number] at 1344 All edits/amendments must be made on the electronic document DICTATION DATE: 08/16/18 1343 SERVICE LIAISON REPRESENTATIVE: STIVEN 08/16/18 1343 RPT#: [id number] DC DATE:08/13/18 STATUS: DIS IN [facility] [address] [place] [address] END OF REPORT
--- NOTE | ~2018-08-06 | MORECARE ---
CASE MANAGEMENT DISCHARGE SUMMARY PATIENT: AAKASH SCHERER UNIT: [id number] ADM DATE: 08/07/18 AGE: 53 : 61 SEX: M ROOM/BED: D.2215 AUTHOR: BRIDGET PANG PHYSICIAN: REFERRING PHYSICIAN: BJ ALMANZAR DO DATE OF SERVICE: 08/13/18 Discharge Plan Patient Name: AAKASH SCHERER Facility: [facility]:[place] : 1965 Planned Disposition: Home Anticipated Discharge Date: Discharge Date: Expected LOS: Initial Reviewer: [email or web address] Initial Review Date: 08/07/2018 Generated: 08/13/18 4:10 pm Comments DCP- Discharge Planning Updated by [email or web address]: Stacey Schulte on 08/13/18 2:[address] Patient Name: AAKASH SCHERER Encounter No: [id number] : 1965 Primary Insurance: [employer] [facility] Anticipated DC Date: Planned Disposition: Home External Planned Provider: : DCP follow-up note: Patient and family in agreement with discharge plan. No changes to plan. Case management will follow and assist as needed. Stacey Schulte DCP- Discharge Planning Updated by [email or web address]: Stacey Schulte on 08/10/18 12:[address] Patient Name: AAKASH SCHERER Admission Status: ER Accout number: [id number] Admission Date: 08-07-2018 : 1965 Admission Diagnosis:CALCULUS OF GALLBLADDER W ACUTE CHOLECYST W/O OBSTRUCTI Attending: BJ ALMANZAR Current LOS: 3 Anticipated DC Date: Planned Disposition: Home Primary Insurance: [employer] [facility] Discharge Planning Comments: CM met with patient to assess discharge planning needs. Patient stated that he is independent with his care at home and he lives with his mother. He denies any HH or DME. He plans to drive himself home when he is discharged. His mother is currently in inpatient rehab. He does not think that he will need anything when he is discharged and states his home is safe to return . CM will continue to follow and assist with DC planning . Burglar Alarm Superintendent: Stacey Schulte DCPIA - Discharge Planning Initial Assessment Updated by [email or web address]: Stacey Schulte on 08/10/18 1:15 pm * Is the patient Alert and Oriented? Yes * How many steps to enter\exit or inside your home? * PCP JENELLE * Pharmacy [facility] [address] * Preadmission Environment Home with Family * ADLs Independent * Equipment None * List name and contact numbers for known caregivers / representatives who currently or will assist patient after discharge: VIVIENNE LING (COUSIN) [phone] * Verbal permission to speak to the caregivers and representatives has been obtained from the patient. N/A * Community resources currently utilized None * Additional services required to return to the preadmission environment? No * Can the patient safely return to the preadmission environment? Yes * Has this patient been hospitalized within the prior 30 days at any hospital? No Last DP export: 08/10/18 12:22 p Patient Name: AAKASH SCHERER Page 43066 at 1510 All edits/amendments must be made on the electronic document DICTATION DATE: 08/13/181509 FURNITURE DELIVERY DRIVER: STIVEN 08/13/181509 RPT#: [id number] DC DATE: STATUS: ADM IN [facility] [address] [place] [address] END OF REPORT
--- NOTE | ~2018-08-06 | HP ---
PATIENT: AAKASH SCHERER MEDICAL RECORD: [id number] ACCOUNT: [id number] LOCATION:D.MS [id number] : [birth year] ADMISSION DATE: 08/07/18 PCP: BJ ALMANZAR DO HISTORY AND PHYSICAL EXAMINATION HISTORY OF PRESENT ILLNESS: A 53-year-old male presented to the Emergency Room with a complaint of right upper quadrant abdominal pain. He had just been discharged for cholecystitis/cholelithiasis, declined surgery at that time because he wanted to proceed with running his dogs for hunting season, presents back with severe pain, clamminess, diaphoresis, nausea and vomiting, was found to be hypotensive on admission to the ER. PAST MEDICAL HISTORY: Parkinson disease, diabetes, and hypertension. ALLERGIES: No known drug allergies. HOME MEDICATIONS: Had been on Levaquin and metronidazole as outpatient from his primary care, Dr. Almanzar. His home medications include lisinopril 5 mg daily, Inderal 10 mg b.i.d. for tremor, metformin 1000 mg b.i.d., metoprolol 25 mg daily, albuterol inhaler, primidone 50 mg t.i.d., Lasix 40 mg b.i.d., potassium chloride 20 mEq p.o. t.i.d. REVIEW OF SYSTEMS: GENERAL: Unclear loss of weight. HEENT: Denies cephalalgia, visual changes, tinnitus, epistaxis, or dysphagia. CARDIOVASCULAR: Denies chest pain, admitted diaphoresis and was hypotensive on admission. PULMONARY: Denies hemoptysis, denies night sweats. GASTROINTESTINAL: Denies hematemesis, hematochezia or melena. Admits to right upper quadrant abdominal pain, multiple episodes of nausea and vomiting, known history of cholelithiasis. MUSCULOSKELETAL: No acute changes. ENDOCRINE: History of diabetes. NEUROLOGIC: History of Parkinson's. Meds as above. PHYSICAL EXAMINATION: GENERAL: Alert and oriented, no present distress. Pain presently well controlled. Morbidly obese. HEENT: Head is normocephalic, atraumatic. Eyes: Pupils are equally round and reactive. Ears: Canals patent, TMs are intact. Nose: Nares patent without drainage. Throat: No erythema, no exudates. NECK: Supple. No lymphadenopathy, no JVD. HEART: Regular rate and rhythm. No S3, S4, no rub. LUNGS: Clear to auscultation bilaterally. Breathing is nonlabored. ABDOMEN: Soft, mild right upper quadrant tenderness. He is on IV pain medications. No rebound, no guarding. EXTREMITIES: Present times 4. Trace edema. NEUROLOGIC: No present focal deficits. SKIN: Warm and dry. No rash. VITAL SIGNS: 97.9 temperature, heart rate of 84, respirations 18, blood pressure 112/78, O2 sats 97% on room air. On admission, his blood pressure was 84/45. LABORATORY DATA: CBC: White count 7.8, hemoglobin 11.9, hematocrit 35.6, and platelets 218. HISTORY AND PHYSICAL [id number] NIESHAAAKASH ROSS Urinalysis normal UA. Chemistry: Sodium 140, potassium 3.3, chloride 99, bicarbonate 36.1, BUN 15, creatinine 2.1, alkaline phosphatase 60, AST 13, ALT 27. Amylase 36, lipase 204. ASSESSMENT AND PLAN: 1. Acute cholecystitis/cholelithiasis. General surgery consulted. The patient was admitted to the ICU due to hypotension. Cautious hydration. We will obtain cardiac enzymes due to his presentation and risk factors. 2. Unclear history of Parkinson's, will resume his home medications and monitor. 3. Hypotension, we will hold his atenolol and lisinopril. Monitor. 4. Diabetes. We will hold metformin, sliding-scale insulin, low dose. Monitor. Supportive care. Electrolyte protocol. TRANSINT:[id number] Voice Confirmation ID: [id number] DOCUMENT ID: [id number] DEONTE GONZALEZ DO at 1030 CC: [id number] DICTATION DATE: 08/07/181414 PROSTHETIST: 08/07/182238 ADM IN [facility] [address] [place] [address]
[~2018-08-06 23:53] MED LIST changes: +BREO ELLIPTA 11 EACH INH; +LEVAQUIN250 MG PO
[2018-08-07] VITALS (15 sets, daily range): BP systolic 80–122; BP diastolic 45–96; Ht 180.3 cm; Wt 162.0 kg
[2018-08-07 00:22] LABS: BASOPHILS 0.3 % (0-2); EOSINOPHILS 2.8 % (0-7); HEMATOCRIT 39.7 % (42.0-54.0); HEMOGLOBIN 13.4 g/dL (13.5-17.5); IMMATURE GRANULOCYTES 0.4 % (0-5); LYMPHOCYTES 16.2 % (15-50); MCH 30.9 pg (26.0-34.0); MCHC 33.8 g/dL (31.0-37.0); MCV 91.5 fL (80.0-100.0); MEAN PLATELET VOLUME 11.1 fL (7.4-10.4); MONOCYTES 5.3 % (2-11); RBC 4.34 10x6/uL (4.20-6.10); RDW 13.8 % (11.5-14.5); WBC 12.8 10x3/uL (4.8-10.8)
[2018-08-07 00:24] LABS: PLATELET COUNT 280 10x3/uL (130-400)
[2018-08-07 00:35] LABS: ALBUMIN 3.3 g/dL (3.4-5.0); ANION GAP 20.5 mmol/L (8-16); BILIRUBIN - TOTAL 0.46 mg/dL (0.2-1.3); CALCIUM 8.6 mg/dL (8.5-10.1); CARBON DIOXIDE 26.4 mmol/L (21.0-32.0); CREATININE - SERUM 2.7 mg/dL (0.6-1.3); POTASSIUM - SERUM 2.9 mmol/L (3.5-5.1); PROTEIN - SERUM 7.3 g/dL (6.4-8.2)
[2018-08-07 09:08] LABS: APPEARANCE CLEAR (CLEAR); BILIRUBIN NEGATIVE (NEGATIVE); COLOR YELLOW (YELLOW); GLUCOSE NEGATIVE (NEGATIVE); KETONE NEGATIVE (NEGATIVE); NITRITE NEGATIVE (NEGATIVE); PROTEIN NEGATIVE (NEGATIVE); UROBILINOGEN NORMAL (NORMAL)
[2018-08-07 09:23] LABS: BASOPHILS 0.3 % (0-2); EOSINOPHILS 2.8 % (0-7); HEMATOCRIT 35.6 % (42.0-54.0); HEMOGLOBIN 11.9 g/dL (13.5-17.5); IMMATURE GRANULOCYTES 0.3 % (0-5); MCH 30.6 pg (26.0-34.0); MCHC 33.4 g/dL (31.0-37.0); MCV 91.5 fL (80.0-100.0); MEAN PLATELET VOLUME 10.7 fL (7.4-10.4); NEUTROPHILS 67.6 % (40-80); RBC 3.89 10x6/uL (4.20-6.10); RDW 13.9 % (11.5-14.5)
[2018-08-07 09:24] LABS: PLATELET COUNT 218 10x3/uL (130-400); WBC 7.8 10x3/uL (4.8-10.8)
[2018-08-07 09:32] LABS: APTT 31.9 SECONDS (22.8-39.4); INR 1.05 (0.85-1.17); PROTIME 13.3 SECONDS (11.6-15.0)
[2018-08-07 09:38] LABS: ALBUMIN 2.9 g/dL (3.4-5.0); ANION GAP 8.2 mmol/L (8-16); BILIRUBIN - TOTAL 0.28 mg/dL (0.2-1.3); CALCIUM 8.2 mg/dL (8.5-10.1); CREATININE - SERUM 2.1 mg/dL (0.6-1.3); POTASSIUM - SERUM 3.3 mmol/L (3.5-5.1); PROTEIN - SERUM 6.5 g/dL (6.4-8.2)
[2018-08-07 09:39] LABS: CARBON DIOXIDE 36.1 mmol/L (21.0-32.0)
[2018-08-07 15:27] LABS: CKMB 0.6 U/L (0.0-3.6); TROPONIN-I < 0.017 ng/mL (0.000-0.060)
[2018-08-08] VITALS: BP 115/83
[2018-08-08 04:00] VITALS: BP 114/60
[2018-08-08 05:35] LABS: BASOPHILS 0.5 % (0-2); HEMATOCRIT 37.5 % (42.0-54.0); HEMOGLOBIN 12.4 g/dL (13.5-17.5); IMMATURE GRANULOCYTES 0.3 % (0-5); LYMPHOCYTES 32.4 % (15-50); MCH 30.4 pg (26.0-34.0); MCHC 33.1 g/dL (31.0-37.0); MCV 91.9 fL (80.0-100.0); MEAN PLATELET VOLUME 11.1 fL (7.4-10.4); MONOCYTES 7.9 % (2-11); NEUTROPHILS 53.9 % (40-80); PLATELET COUNT 204 10x3/uL (130-400); RBC 4.08 10x6/uL (4.20-6.10); RDW 13.9 % (11.5-14.5); WBC 6.2 10x3/uL (4.8-10.8)
[2018-08-08 06:13] LABS: ALBUMIN 3.1 g/dL (3.4-5.0); ALKALINE PHOSPHATASE 63 U/L (46-116); ALT (SGPT) 26 U/L (10-68); CALCIUM 8.8 mg/dL (8.5-10.1); CARBON DIOXIDE 33.8 mmol/L (21.0-32.0); CHLORIDE - SERUM 98 mmol/L (98-107); GLUCOSE 128 mg/dL (74-106); MAGNESIUM - SERUM 1.6 mg/dL (1.8-2.4); PHOSPHOROUS 3.2 mg/dL (2.5-4.9); POTASSIUM - SERUM 3.4 mmol/L (3.5-5.1); SODIUM 137 mmol/L (136-145); TROPONIN-I < 0.017 ng/mL (0.000-0.060)
[2018-08-08 06:36] LABS: CKMB 0.4 U/L (0.0-3.6)
[2018-08-08 06:37] LABS: CALC OSMOLALITY 273 mosm/kg (275-300); CREATININE - SERUM 1.2 mg/dL (0.6-1.3); UREA NITROGEN 7 mg/dL (7-18); eGFR NON AFRICAN AMERICAN 67 mL/min (90-120)
[2018-08-08 08:30] VITALS: BP 144/82
[2018-08-08 14:02] VITALS: BP 144/60
[2018-08-08 18:10] VITALS: BP 126/74
[2018-08-08 20:22] VITALS: BP 109/66
[2018-08-09 01:06] VITALS: BP 124/74
[2018-08-09 04:21] LABS: BASOPHILS 0.6 % (0-2); EOSINOPHILS 4.7 % (0-7); HEMATOCRIT 38.9 % (42.0-54.0); HEMOGLOBIN 12.5 g/dL (13.5-17.5); IMMATURE GRANULOCYTES 0.9 % (0-5); LYMPHOCYTES 35.9 % (15-50); MCH 29.8 pg (26.0-34.0); MCHC 32.1 g/dL (31.0-37.0); MCV 92.8 fL (80.0-100.0); MEAN PLATELET VOLUME 12.1 fL (7.4-10.4); MONOCYTES 6.7 % (2-11); NEUTROPHILS 51.2 % (40-80); RBC 4.19 10x6/uL (4.20-6.10); RDW 13.9 % (11.5-14.5); WBC 5.4 10x3/uL (4.8-10.8)
[2018-08-09 04:28] LABS: PLATELET COUNT 142 10x3/uL (130-400)
[2018-08-09 04:34] LABS: ALBUMIN 3.1 g/dL (3.4-5.0); ALKALINE PHOSPHATASE 62 U/L (46-116); ALT (SGPT) 30 U/L (10-68); BILIRUBIN - TOTAL 0.18 mg/dL (0.2-1.3); CALCIUM 9.2 mg/dL (8.5-10.1); CARBON DIOXIDE 28.3 mmol/L (21.0-32.0); CHLORIDE - SERUM 104 mmol/L (98-107); CREATININE - SERUM 0.9 mg/dL (0.6-1.3); GLUCOSE 140 mg/dL (74-106); PROTEIN - SERUM 6.2 g/dL (6.4-8.2); SODIUM 142 mmol/L (136-145); eGFR NON AFRICAN AMERICAN > 90 mL/min (90-120)
[2018-08-09 04:35] LABS: CALC OSMOLALITY 281 mosm/kg (275-300); POTASSIUM - SERUM 4.1 mmol/L (3.5-5.1); UREA NITROGEN 4 mg/dL (7-18)
[2018-08-09 05:17] VITALS: BP 102/64
[2018-08-09 08:16] VITALS: BP 127/76
[2018-08-09 12:33] VITALS: BP 138/82
[2018-08-09 16:32] VITALS: BP 133/65
[2018-08-09 20:43] VITALS: BP 150/89
[2018-08-10] VITALS (12 sets, daily range): BP systolic 111–141; BP diastolic 17–89
[2018-08-10 04:32] LABS: BASOPHILS 0.5 % (0-2); EOSINOPHILS 4.1 % (0-7); HEMATOCRIT 38.6 % (42.0-54.0); HEMOGLOBIN 12.8 g/dL (13.5-17.5); IMMATURE GRANULOCYTES 0.3 % (0-5); LYMPHOCYTES 30.7 % (15-50); MCH 30.7 pg (26.0-34.0); MCHC 33.2 g/dL (31.0-37.0); MCV 92.6 fL (80.0-100.0); MONOCYTES 6.5 % (2-11); NEUTROPHILS 57.9 % (40-80); RBC 4.17 10x6/uL (4.20-6.10); RDW 13.6 % (11.5-14.5); WBC 5.9 10x3/uL (4.8-10.8)
[2018-08-10 04:45] LABS: PLATELET COUNT 236 10x3/uL (130-400)
[2018-08-10 05:06] LABS: ALBUMIN 3.1 g/dL (3.4-5.0); ALKALINE PHOSPHATASE 62 U/L (46-116); ALT (SGPT) 35 U/L (10-68); BILIRUBIN - TOTAL 0.36 mg/dL (0.2-1.3); CALC OSMOLALITY 281 mosm/kg (275-300); CALCIUM 9.2 mg/dL (8.5-10.1); CARBON DIOXIDE 27.8 mmol/L (21.0-32.0); CHLORIDE - SERUM 106 mmol/L (98-107); GLUCOSE 106 mg/dL (74-106); POTASSIUM - SERUM 3.8 mmol/L (3.5-5.1); PROTEIN - SERUM 6.8 g/dL (6.4-8.2); SODIUM 143 mmol/L (136-145); UREA NITROGEN 3 mg/dL (7-18); eGFR NON AFRICAN AMERICAN 82 mL/min (90-120)
[2018-08-11 05:34] VITALS: BP 103/59
[2018-08-11 08:20] VITALS: BP 107/55
[2018-08-11 12:38] VITALS: BP 115/49
[2018-08-11 17:06] VITALS: BP 146/57
[2018-08-11 20:20] VITALS: BP 98/53
[2018-08-12 04:25] LABS: BASOPHILS 0.6 % (0-2); EOSINOPHILS 3.8 % (0-7); HEMATOCRIT 37.5 % (42.0-54.0); HEMOGLOBIN 12.3 g/dL (13.5-17.5); IMMATURE GRANULOCYTES 0.5 % (0-5); MCH 30.4 pg (26.0-34.0); MCHC 32.8 g/dL (31.0-37.0); MCV 92.6 fL (80.0-100.0); NEUTROPHILS 66.1 % (40-80); PLATELET COUNT 223 10x3/uL (130-400); RBC 4.05 10x6/uL (4.20-6.10); RDW 13.6 % (11.5-14.5); WBC 8.2 10x3/uL (4.8-10.8)
[2018-08-12 04:43] LABS: ANION GAP 13.2 mmol/L (8-16); BILIRUBIN - TOTAL 0.29 mg/dL (0.2-1.3); CALCIUM 8.8 mg/dL (8.5-10.1); CARBON DIOXIDE 27.8 mmol/L (21.0-32.0); CREATININE - SERUM 1.1 mg/dL (0.6-1.3); PROTEIN - SERUM 6.6 g/dL (6.4-8.2)
[2018-08-12 05:18] VITALS: BP 137/65
[2018-08-12 08:45] VITALS: BP 134/65
[2018-08-12 12:45] VITALS: BP 126/73
[2018-08-12 20:00] VITALS: BP 121/70
[2018-08-13] VITALS: BP 127/78
[2018-08-13 04:00] VITALS: BP 145/72
[2018-08-13 09:01] VITALS: BP 134/76
[2018-08-13 09:14] LABS: CALC OSMOLALITY 278 mosm/kg (275-300); CARBON DIOXIDE 26.8 mmol/L (21.0-32.0); CHLORIDE - SERUM 104 mmol/L (98-107); CREATININE - SERUM 0.9 mg/dL (0.6-1.3); GLUCOSE 137 mg/dL (74-106); POTASSIUM - SERUM 3.8 mmol/L (3.5-5.1); SODIUM 140 mmol/L (136-145); UREA NITROGEN 8 mg/dL (7-18); eGFR NON AFRICAN AMERICAN > 90 mL/min (90-120)
[2018-08-13 12:23] VITALS: BP 140/76
[2018-08-13] MEDS ORDERED: METOLAZONE2.5 MG PO (14:28)
== END 2018-08-13 16:53 | disposition home or self-care (01) | DRG 418 ==
LOC: D.ER 23:53 → D.MS 08-07 01:17 → D.ICU 08-07 01:17 → D.MS 08-07 18:25
PROVIDERS: Emergency Medicine; Family Medicine; Surgery
PROC: 0FT44ZZ Resection of Gallbladder, Percutaneous Endoscopic Approach (ICD-10-PCS; principal; 2018-08-10 11:00)
DX: K80.00 Calculus of gallbladder with acute cholecystitis without obstruction (principal); Z68.42 Body mass index [BMI] 45.0-49.9, adult; I95.9 Hypotension, unspecified; G20 Parkinson's disease; E11.9 Type 2 diabetes mellitus without complications; Z79.84 Long term (current) use of oral hypoglycemic drugs; I10 Essential (primary) hypertension; K21.9 Gastro-esophageal reflux disease without esophagitis; E66.01 Morbid (severe) obesity due to excess calories

== ENCOUNTER 2020-02-16 13:05 | Emergency (ER) | payer MEDICAID ==
[~2020-02-16] VITALS: Ht 180.3 cm; Wt 159.5 kg
[~2020-02-16 13:05] MED LIST changes: +METOLAZONE2.5 MG PO
[2020-02-16 13:33] VITALS: Ht 180.3 cm; Wt 159.5 kg
[2020-02-16 14:26] LABS: ALKALINE PHOSPHATASE 96 U/L (30-120); ALT (SGPT) 29 U/L (10-68); BILIRUBIN - TOTAL 0.57 mg/dL (0.2-1.3); CALCIUM 9.1 mg/dL (8.5-10.1); CHLORIDE - SERUM 93 mmol/L (98-107); CKMB 0.7 U/L (0.0-3.6); CREATINE KINASE 124 UL (21-232); CREATININE - SERUM 1.5 mg/dL (0.6-1.3); PRO BNP 62 pg/mL (0-125); SODIUM 137 mmol/L (136-145); TROPONIN-I < 0.017 ng/mL (0.000-0.060); UREA NITROGEN 16 mg/dL (7-18); eGFR NON AFRICAN AMERICAN 51 mL/min (90-120)
[2020-02-16 14:27] LABS: BASOPHILS 0.5 % (0-2); EOSINOPHILS 1.9 % (0-7); HEMATOCRIT 45.6 % (42.0-54.0); HEMOGLOBIN 15.1 g/dL (13.5-17.5); IMMATURE GRANULOCYTES 0.2 % (0-5); LYMPHOCYTES 23.3 % (15-50); MCH 31.2 pg (26.0-34.0); MCHC 33.1 g/dL (31.0-37.0); MCV 94.2 fL (80.0-100.0); MEAN PLATELET VOLUME 11.1 fL (7.4-10.4); MONOCYTES 8.3 % (2-11); NEUTROPHILS 65.8 % (40-80); RBC 4.84 10x6/uL (4.20-6.10); RDW 13.3 % (11.5-14.5); WBC 8.8 10x3/uL (4.8-10.8)
[2020-02-16 14:30] LABS: PLATELET COUNT 277 10x3/uL (130-400)
[2020-02-16 14:34] LABS: CALC OSMOLALITY 279 mosm/kg (275-300); GLUCOSE 191 mg/dL (74-106)
[2020-02-16 14:35] LABS: POTASSIUM - SERUM 2.2 mmol/L (3.5-5.1)
[2020-02-16 14:36] LABS: INR 0.99 (0.85-1.17); PROTIME 13.1 SECONDS (11.6-15.0)
[2020-02-16 15:23] LABS: C-REACTIVE PROTEIN 2.5 mg/dL (0.0-0.9)
[2020-02-16] MEDS ORDERED: KEFLEX500 MG PO (15:38)
[2020-02-16] MEDS ORDERED: VENTOLIN HFA [SP8 GM INH (15:38)
[2020-02-16 16:02] VITALS: BP 124/73
== END 2020-02-16 16:03 | disposition home or self-care (01) ==
LOC: D.ER 13:05
PROVIDERS: Emergency Medicine
DX: R06.00 Dyspnea, unspecified (principal); R05 Cough; E87.6 Hypokalemia; N28.9 Disorder of kidney and ureter, unspecified; G20 Parkinson's disease; E11.9 Type 2 diabetes mellitus without complications; I10 Essential (primary) hypertension; I48.91 Unspecified atrial fibrillation; K21.9 Gastro-esophageal reflux disease without esophagitis; Z72.0 Tobacco use; Z79.84 Long term (current) use of oral hypoglycemic drugs

== ENCOUNTER 2020-03-10 15:41 | Observation (INO) | payer MEDICAID ==
[~2020-03-10] VITALS: Ht 180.3 cm; Wt 170.0 kg
[~2020-03-10 15:41] MED LIST changes: +KEFLEX500 MG PO; +VENTOLIN HFA [SP8 GM INH
[2020-03-10 16:10] VITALS: BP 111/59
--- NOTE | 2020-03-10 16:11 | NUR ---
PT REPORTS NO CHEST PAIN AT THIS TIME AFTER 1 NITRO.
[2020-03-10 16:13] LABS: HEMATOCRIT 45.5 % (42.0-54.0); HEMOGLOBIN 15.1 g/dL (13.5-17.5); LYMPHOCYTES 17.5 % (15-50); MCH 30.4 pg (26.0-34.0); MCHC 33.2 g/dL (31.0-37.0); MCV 91.5 fL (80.0-100.0); MEAN PLATELET VOLUME 10.7 fL (7.4-10.4); NEUTROPHILS 76.8 % (40-80); PLATELET COUNT 268 10x3/uL (130-400); RBC 4.97 10x6/uL (4.20-6.10); RDW 12.6 % (11.5-14.5); WBC 10.9 10x3/uL (4.8-10.8)
[2020-03-10 16:18] LABS: APTT 32.5 SECONDS (22.8-39.4); INR 0.97 (0.85-1.17); PROTIME 12.8 SECONDS (11.6-15.0)
[2020-03-10 16:37] LABS: ALBUMIN 3.8 g/dL (3.4-5.0); ALKALINE PHOSPHATASE 96 U/L (30-120); ALT (SGPT) 38 U/L (10-68); CALC OSMOLALITY 275 mosm/kg (275-300); CALCIUM 9.1 mg/dL (8.5-10.1); CHLORIDE - SERUM 91 mmol/L (98-107); CKMB 1.1 U/L (0.0-3.6); CREATINE KINASE 91 UL (21-232); CREATININE - SERUM 1.7 mg/dL (0.6-1.3); GLUCOSE 155 mg/dL (74-106); MAGNESIUM - SERUM 1.6 mg/dL (1.8-2.4); PROTEIN - SERUM 8.1 g/dL (6.4-8.2); SODIUM 135 mmol/L (136-145); UREA NITROGEN 21 mg/dL (7-18); eGFR NON AFRICAN AMERICAN 44 mL/min (90-120)
[2020-03-10 16:42] LABS: TROPONIN-I < 0.017 ng/mL (0.000-0.060)
[2020-03-10 16:43] LABS: POTASSIUM - SERUM 2.5 mmol/L (3.5-5.1)
--- NOTE | 2020-03-10 16:43 | NUR ---
K+ 2.5 CALLED BY LAB
[2020-03-10] MEDS ORDERED: METOLAZONE2.5 MG PO (17:53)
--- NOTE | 2020-03-10 18:20 | NUR ---
1750PATIENT ARRIVED TO UNIT VIA WHEELCHAIR FROM ED AND ADMITTED TO ROOM 2126. PATIENT ALERT,ORIENTED, AND AMBULATORY. ROOM ORIENTATION PROVIDED. PATIENT SITTING IN CHAIR AT BEDSIDE. TELEMETRY APPLIED. PATIENT STATES HE FEELS SO MUCH BETTER AFTER RECEIVING NITRO. PATIENT HOPING HE WILL GET TO GO HOME TOMORROW. CALL LIGHT WITHIN REACH. MED REQ COMPLETED AND PHARMACY UPDATED. BLACK COFFEE AND DIET COKE PROVIDED.
--- NOTE | 2020-03-10 18:20 | NUR ---
PATIENT SITTING AT BEDSIDE CONSUMING PM MEAL.
[2020-03-10 18:25] VITALS: BP 97/64; BMI 50.3
[2020-03-10 20:00] VITALS: BP 119/80
[2020-03-10 21:03] LABS: CKMB 0.9 U/L (0.0-3.6); CREATINE KINASE 82 UL (21-232)
[2020-03-10 21:06] LABS: TROPONIN-I < 0.017 ng/mL (0.000-0.060)
[2020-03-11] VITALS: BP 112/78
--- NOTE | 2020-03-11 02:10 | NUR ---
LAYING IN BED WITH HOB ELEVATED. EYES OPEN AND ORIENTED X4. DENIES ANY NEEDS AT THIS TIME.
[2020-03-11 04:00] VITALS: BP 116/81
[2020-03-11 06:50] LABS: HEMATOCRIT 42.2 % (42.0-54.0); HEMOGLOBIN 14.3 g/dL (13.5-17.5); LYMPHOCYTES 22.7 % (15-50); MCH 31.3 pg (26.0-34.0); MCHC 33.9 g/dL (31.0-37.0); MCV 92.3 fL (80.0-100.0); MEAN PLATELET VOLUME 10.5 fL (7.4-10.4); NEUTROPHILS 70.1 % (40-80); PLATELET COUNT 220 10x3/uL (130-400); RBC 4.57 10x6/uL (4.20-6.10); RDW 12.8 % (11.5-14.5); WBC 7.4 10x3/uL (4.8-10.8)
[2020-03-11 07:03] LABS: ALBUMIN 3.4 g/dL (3.4-5.0); ALKALINE PHOSPHATASE 86 U/L (30-120); ALT (SGPT) 32 U/L (10-68); BILIRUBIN - TOTAL 0.68 mg/dL (0.2-1.3); CALC OSMOLALITY 279 mosm/kg (275-300); CALCIUM 8.2 mg/dL (8.5-10.1); CARBON DIOXIDE 35.4 mmol/L (21.0-32.0); CHLORIDE - SERUM 94 mmol/L (98-107); CKMB 0.7 U/L (0.0-3.6); CREATINE KINASE 76 UL (21-232); GLUCOSE 178 mg/dL (74-106); PROTEIN - SERUM 6.7 g/dL (6.4-8.2); SODIUM 137 mmol/L (136-145); UREA NITROGEN 17 mg/dL (7-18)
[2020-03-11 07:05] LABS: CREATININE - SERUM 0.9 mg/dL (0.6-1.3); eGFR NON AFRICAN AMERICAN > 90 mL/min (90-120)
[2020-03-11 07:06] LABS: POTASSIUM - SERUM 2.5 mmol/L (3.5-5.1); TROPONIN-I < 0.017 ng/mL (0.000-0.060)
--- NOTE | 2020-03-11 07:24 | NUR ---
PT AWAKE AND ORIENTED, LYING ON BACK IN BED. STATES NO CHEST PAIN OR DISCOMFORT THORUGHOUT THE NIGHT. NO COMPLAINTS OR CONCERNS AT THIS TIME, ALL QUESTIONS ANSWERED TO THE BEST OF MY ABILITY. CL IN REACH, SRX2.
[2020-03-11 08:06] VITALS: BP 109/70
[2020-03-11 09:01] VITALS: Ht 180.3 cm; Wt 170.0 kg
--- NOTE | 2020-03-11 09:31 | NUR ---
PT AWAKE AND ORIENTED, SPOKE TO FIANCE ON THE PHONE PT TOOK MEDICATIONS WITHOUT DIFFICLUTY. FOLLWED ELECTROLYTE PROTOCOL. WANTS A SHOWER LATER, AFTER COLOR CHECKER ROVING OR YARN VISISTS. CL IN REACH, SRX2.
[2020-03-11 10:25] LABS: HEMOGLOBIN 13.3 g/dL (13.5-17.5); MCH 30.6 pg (26.0-34.0); MCHC 33.3 g/dL (31.0-37.0); MCV 92.2 fL (80.0-100.0); MEAN PLATELET VOLUME 10.5 fL (7.4-10.4); NEUTROPHILS 70.8 % (40-80); PLATELET COUNT 216 10x3/uL (130-400); RBC 4.34 10x6/uL (4.20-6.10); RDW 12.8 % (11.5-14.5); WBC 7.1 10x3/uL (4.8-10.8)
[2020-03-11 10:54] LABS: ALT (SGPT) 31 U/L (10-68); CALC OSMOLALITY 275 mosm/kg (275-300); CALCIUM 8.4 mg/dL (8.5-10.1); CARBON DIOXIDE 35.2 mmol/L (21.0-32.0); CHLORIDE - SERUM 93 mmol/L (98-107); CHOL - HDL RATIO 3.4 ratio (2.3-4.9); CHOLESTEROL, TOTAL 126 mg/dL (0-200); CKMB 0.7 U/L (0.0-3.6); CREATINE KINASE 66 UL (21-232); CREATININE - SERUM 1.1 mg/dL (0.6-1.3); GLUCOSE 233 mg/dL (74-106); HDL CHOLESTEROL 37 mg/dL (32-96); LDL CHOLESTEROL 65 mg/dL (0-100); LDL-HDL RATIO 1.8 ratio (1.5-3.5); SODIUM 134 mmol/L (136-145); TRIGLYCERIDE 120 mg/dL (30-200); UREA NITROGEN 16 mg/dL (7-18); eGFR NON AFRICAN AMERICAN 73 mL/min (90-120)
[2020-03-11 10:56] LABS: POTASSIUM - SERUM 2.3 mmol/L (3.5-5.1); TROPONIN-I < 0.017 ng/mL (0.000-0.060)
[2020-03-11 12:08] VITALS: BP 117/67
--- NOTE | 2020-03-11 14:14 | NUR ---
I have reviewed this patient and I concur with the Shift Assessment completed by the Licensed Practical Nurse today this shift.
[2020-03-11 15:43] VITALS: BP 112/76
[2020-03-11 17:55] LABS: BILIRUBIN NEGATIVE (NEGATIVE); GLUCOSE NEGATIVE (NEGATIVE); KETONE NEGATIVE (NEGATIVE); NITRITE NEGATIVE (NEGATIVE); UROBILINOGEN NORMAL (NORMAL)
[2020-03-11 18:11] LABS: UDS - AMPHET NEGATIVE QUAL (NEGATIVE); UDS - BARB NEGATIVE QUAL (NEGATIVE); UDS - BENZO NEGATIVE QUAL (NEGATIVE); UDS - COCAINE NEGATIVE QUAL (NEGATIVE); UDS - OPIATE NEGATIVE QUAL (NEGATIVE); UDS - PCP NEGATIVE QUAL (NEGATIVE); UDS - THC NEGATIVE QUAL (NEGATIVE)
--- NOTE | 2020-03-11 19:20 | NUR ---
BEDSIDE REPORT RECEIVED, PT CARE ASSUMED. INTRODUCED SELF AND WROTE NAME ON BOARD. PT SITTING UP IN CHAIR AT BEDSIDE, AAOX4, WATCHING TV. REQUESTING CHICKEN BROTH AND DIET COLA, PROVIDED. DENIES PAIN OR ANY OTHER NEEDS AT THIS TIME. BED IN LOWEST, CALL LIGHT AND CELLPHONE WITHIN REACH. WILL CTM.
[2020-03-11 20:00] VITALS: BP 113/62
[2020-03-12 00:01] VITALS: BP 120/72
[2020-03-12 04:00] VITALS: BP 111/68
[2020-03-12 05:21] LABS: HEMATOCRIT 38.6 % (42.0-54.0); LYMPHOCYTES 18.6 % (15-50); MCH 31.4 pg (26.0-34.0); MCHC 33.7 g/dL (31.0-37.0); MCV 93.2 fL (80.0-100.0); MEAN PLATELET VOLUME 10.6 fL (7.4-10.4); NEUTROPHILS 74.5 % (40-80); PLATELET COUNT 191 10x3/uL (130-400); RBC 4.14 10x6/uL (4.20-6.10); RDW 12.8 % (11.5-14.5); WBC 8.7 10x3/uL (4.8-10.8)
[2020-03-12 05:24] LABS: CALCIUM 8.7 mg/dL (8.5-10.1); CARBON DIOXIDE 35.1 mmol/L (21.0-32.0); CHLORIDE - SERUM 96 mmol/L (98-107); SODIUM 138 mmol/L (136-145); UREA NITROGEN 15 mg/dL (7-18); eGFR NON AFRICAN AMERICAN 82 mL/min (90-120)
[2020-03-12 06:12] LABS: CALC OSMOLALITY 281 mosm/kg (275-300); GLUCOSE 180 mg/dL (74-106)
[2020-03-12 06:15] LABS: POTASSIUM - SERUM 2.5 mmol/L (3.5-5.1)
--- NOTE | 2020-03-12 07:15 | NUR ---
RECEIVED PT IN BED EYES CLOSED RESP IUNLABORED SKIN W/D COLOR WNL DENIES ANY NEEDS OR DISCOMFORT AT THIS TIME
[2020-03-12 09:09] VITALS: BP 116/66
[2020-03-12 12:00] VITALS: BP 118/86
[2020-03-12 16:00] VITALS: BP 116/81
--- NOTE | 2020-03-12 19:20 | NUR ---
RECEIVED REPORT, WILL ASSUME CARE OF PT, SITTING IN CHAIR, DENIES ANY NEEDS AT THIS TIME, CALL LIGHT IN REACH, WILL CONTINUE PLAN OF CARE
[2020-03-12 20:48] VITALS: BP 114/69
--- NOTE | 2020-03-12 21:30 | NUR ---
K+2.8, WILL INFUSE 6 BAGS ORDERED PER PROTOCOL
[2020-03-13 00:22] VITALS: BP 120/73
[2020-03-13 04:32] VITALS: BP 153/70
[2020-03-13 05:35] LABS: HEMATOCRIT 38.5 % (42.0-54.0); HEMOGLOBIN 12.8 g/dL (13.5-17.5); LYMPHOCYTES 18.2 % (15-50); MCH 30.9 pg (26.0-34.0); MCHC 33.2 g/dL (31.0-37.0); MEAN PLATELET VOLUME 10.6 fL (7.4-10.4); NEUTROPHILS 76.6 % (40-80); PLATELET COUNT 185 10x3/uL (130-400); RBC 4.14 10x6/uL (4.20-6.10); WBC 8.4 10x3/uL (4.8-10.8)
[2020-03-13 05:40] LABS: ALBUMIN 3.1 g/dL (3.4-5.0); ALKALINE PHOSPHATASE 82 U/L (30-120); ALT (SGPT) 28 U/L (10-68); CALC OSMOLALITY 275 mosm/kg (275-300); CALCIUM 8.7 mg/dL (8.5-10.1); CARBON DIOXIDE 30.8 mmol/L (21.0-32.0); CHLORIDE - SERUM 97 mmol/L (98-107); GLUCOSE 179 mg/dL (74-106); MAGNESIUM - SERUM 1.7 mg/dL (1.8-2.4); PROTEIN - SERUM 6.9 g/dL (6.4-8.2); SODIUM 136 mmol/L (136-145); UREA NITROGEN 13 mg/dL (7-18); eGFR NON AFRICAN AMERICAN 82 mL/min (90-120)
[2020-03-13 05:42] LABS: POTASSIUM - SERUM 2.9 mmol/L (3.5-5.1)
--- NOTE | 2020-03-13 05:51 | NUR ---
LAB CALL K+2.9, FINISHED GIVING K+ AROUND 0430, WILL HAVE DRAWN AT 0645
--- NOTE | 2020-03-13 07:20 | NUR ---
RECIEVE REPORT. SITTING UP CHAIR. AIR CONDITIONING SUPERVISOR AT BEDSIDE DRAWING POTASSIUM RECHECK. DENIES ANY NEEDS AT THIS TIME. CONTINUE PLAN OF CARE AND SAFETY PRECAUTIONS.
[2020-03-13 09:02] VITALS: BP 126/52
--- NOTE | 2020-03-13 09:58 | NUR ---
ALERT AND ORIENTED X4. INITIATE IV POTASSIUM INFUSION FOR POTASSIUM 3.0. EXPRESSES NOT WANTING TO HAVE HEART CATH. REQUEST TO SPEAK WITH . NOTIFY OF REQUEST.
[2020-03-13 14:18] VITALS: BP 148/86
[2020-03-13] MEDS ORDERED: K-DUR20 MEQ PO (14:49)
--- NOTE | 2020-03-13 17:16 | NUR ---
ALERT AND ORIENTED X4. SITTING UP IN BED. DC LT AC IV TIP INTACT. DISCHARGE INSTRUCTIONS GIVEN VERBALLY AND WRITTEN. DISCHARGE PAPERS SIGNED ON CHART. ESCORT TO RIDE VIA WHEELCHAIR. REMAINS FREE FROM INJURY.
== END 2020-03-13 17:18 | disposition home or self-care (01) ==
LOC: D.ER 15:41 → D.M2 16:45 → OBSVTIME 21:00 → D.M2 03-13 17:18
PROVIDERS: Family Medicine; Internal Medicine Cardiovascular Disease; ADMIT Internal Medicine Nephrology; ATTEND Internal Medicine Nephrology
DX: I20.0 Unstable angina (principal); E87.6 Hypokalemia; E11.9 Type 2 diabetes mellitus without complications; K21.9 Gastro-esophageal reflux disease without esophagitis; G20 Parkinson's disease; J42 Unspecified chronic bronchitis; J45.909 Unspecified asthma, uncomplicated; F17.203 Nicotine dependence unspecified, with withdrawal; E66.01 Morbid (severe) obesity due to excess calories; Z68.43 Body mass index [BMI] 50.0-59.9, adult

== ENCOUNTER 2021-04-30 22:21 | Emergency (ER) | payer MEDICARE ==
[~2021-04-30] VITALS: Ht 180.3 cm; Wt 158.8 kg
[~2021-04-30 22:21] MED LIST changes: +CARAFATE1 G PO; +CYCLOBENZAPRINE10 MG PO; +HYDROCODON-ACE1 EA10 PO; +PROTONIX40 MG PO
[2021-04-30 22:35] VITALS: Ht 180.3 cm; Wt 158.8 kg
[2021-04-30 23:46] LABS: BILIRUBIN NEGATIVE (NEGATIVE); KETONE NEGATIVE mg/dL (< 1+); NITRITE NEGATIVE (NEGATIVE); UROBILINOGEN NORMAL mg/dL (< 2)
[2021-04-30 23:56] LABS: BASOPHILS 1.3 % (0-2); EOSINOPHILS 1.9 % (0-7); HEMATOCRIT 46.5 % (42.0-54.0); HEMOGLOBIN 15.6 g/dL (13.5-17.5); LYMPHOCYTES 19.7 % (15-50); MCH 30.2 pg (26.0-34.0); MCHC 33.5 g/dL (31.0-37.0); MCV 90.3 fL (80.0-100.0); MEAN PLATELET VOLUME 9.1 fL (7.4-10.4); MONOCYTES 5.7 % (2-11); NEUTROPHILS 71.4 % (40-80); PLATELET COUNT 290 10x3/uL (130-400); RBC 5.15 10x6/uL (4.20-6.10); RDW 14.1 % (11.5-14.5); WBC 11.2 10x3/uL (4.8-10.8)
[2021-05-01 00:03] LABS: ANION GAP 13.6 mmol/L (8-16); CALCIUM 8.9 mg/dL (8.5-10.1); CARBON DIOXIDE 29.5 mmol/L (21.0-32.0); CREATININE - SERUM 1.1 mg/dL (0.6-1.3); POTASSIUM - SERUM 3.1 mmol/L (3.5-5.1)
[2021-05-01 00:11] LABS: BILIRUBIN - TOTAL 0.5 mg/dL (0.2-1.3)
[2021-05-01 01:23] VITALS: BP 152/100
== END 2021-05-01 00:50 | disposition home or self-care (01) ==
LOC: D.ER 22:21
PROVIDERS: Family Medicine
DX: R51.9 Headache, unspecified (principal); E87.6 Hypokalemia; G20 Parkinson's disease; E11.9 Type 2 diabetes mellitus without complications; J45.909 Unspecified asthma, uncomplicated; K21.9 Gastro-esophageal reflux disease without esophagitis; Z79.84 Long term (current) use of oral hypoglycemic drugs

== ENCOUNTER → 2021-05-02 10:35 | Outpatient (CLI) | payer MEDICARE ==
[2021-04-30 22:35] VITALS: BMI 52.0
== END | disposition home or self-care (01) ==
LOC: D.MRI 10:35
PROVIDERS: ATTEND Psychiatry & Neurology Neurology
DX: G31.9 Degenerative disease of nervous system, unspecified (principal)